=== PATIENT | female | born 1960 | race Caucasian/White ===

== ENCOUNTER → 2020-06-03 15:05 | Outpatient (BNVA) | payer OTHER, SELFPAY | PROVIDERS: PCP Internal Medicine; Visit Provider Internal Medicine Cardiovascular Disease | DX: Z45.02 Encounter for adjustment and management of automatic implantable cardiac defibrillator (principal); I42.8 Other cardiomyopathies; I49.3 Ventricular premature depolarization | CPT/HCPCS: 93005 ==

== ENCOUNTER 2020-06-16 08:51 | Outpatient (REF) | payer OTHER, SELFPAY ==
--- NOTE | 2020-06-16 08:58 | MM_ITS ---
EXAMINATION: MM SCREENING DIGITAL BREAST TOMOSYNTHESIS, BILATERAL CLINICAL INFORMATION: Screening. Asymptomatic. The lifetime risk of breast cancer based on the Tyrer-Cuzick Model is 6.1%. COMPARISON: Mammography: September 12, 2018 and August 02, 2016 TECHNIQUE: Digital breast tomosynthesis is performed in both the craniocaudal and mediolateral oblique views along with computer-aided detection (CAD). Synthesized 2D images are generated from the tomosynthesis. FINDINGS: There are scattered areas of fibroglandular density (ACR BI-RADS breast composition Category b). There are no significant masses, abnormal calcifications, or other abnormalities. MM/MM tomosynthesis screening BI IMPRESSION: There are no significant changes from prior study. ASSESSMENT: BI-RADS 1: Negative RECOMMENDATION: Routine annual mammography screening. This patient's information was entered into a reminder system with a target due date for their next mammogram.
== END 2020-06-16 08:52 | disposition home or self-care (01) ==
LOC: HO.MAMMO 08:51
PROVIDERS: Visit Provider Internal Medicine
DX: Z12.31 Encounter for screening mammogram for malignant neoplasm of breast (principal)
CPT/HCPCS: 77063; 77067

== ENCOUNTER → 2023-01-16 23:59 | Outpatient (BNV) | payer OTHER, SELFPAY ==
--- NOTE | 2023-01-24 14:55 | MHC.OFFVIS ---
Intake Intake Visit Reasons: Remote ICD Check- [employer] Allergies Pt states no known allergy to Allergy (Unknown, Uncoded 09/22/19 00:00) PFSH Medical History Biventricular ICD (implantable cardioverter-defibrillator) in place Frequent PVCs Nonischemic cardiomyopathy Surgical History History of cardiac radiofrequency ablation Hx of cardiac cath Hx of cholecystectomy Family History Father No problems noted. Mother No problems noted. Sister Stroke Office Procedures Cardiac Device Check Cardiac Device Check Details: Remote ICD report generated 01/16/2023. ICD function is adequate 65900-Utdrls Cardiac Interrogation, implant defibrillator w/interim Procedure code (CPT) selection complete Coding Level of Care Code Procedure Only Diagnoses CPT Codes Cardiac Device Check - Cardiac Device 13: 99640-Cjdflh Cardiac Interrogation, implant defibrillator w/interim ([id number])
== END ==
PROVIDERS: PCP Internal Medicine; Visit Provider Internal Medicine Cardiovascular Disease
DX: I42.8 Other cardiomyopathies (principal); Z95.810 Presence of automatic (implantable) cardiac defibrillator
CPT/HCPCS: 93295

== ENCOUNTER → 2023-01-16 23:59 | Outpatient (BNV) | payer OTHER, SELFPAY ==
--- NOTE | 2023-01-24 14:52 | MHC.OFFVIS ---
Intake Intake Visit Reasons: Remote HF Monitoring- [employer] Allergies Pt states no known allergy to Allergy (Unknown, Uncoded 09/22/19 00:00) PFSH Medical History Biventricular ICD (implantable cardioverter-defibrillator) in place Frequent PVCs Nonischemic cardiomyopathy Surgical History History of cardiac radiofrequency ablation Hx of cardiac cath Hx of cholecystectomy Family History Father No problems noted. Mother No problems noted. Sister Stroke Office Procedures Cardiac Device Check Cardiac Device Check Details: Remote heart failure report generated 01/16/2023. Heart failure parameters are stable 99491-Qeaekz Cardiac Device Interrogation, cardio physiologic monitor Procedure code (CPT) selection complete Coding Level of Care Code Procedure Only Diagnoses CPT Codes Cardiac Device Check - Cardiac Device 15: 04671-Nvfcff Cardiac Device Interrogation, cardio physiologic monitor ([id number])
== END ==
PROVIDERS: PCP Internal Medicine; Visit Provider Internal Medicine Cardiovascular Disease
DX: I42.8 Other cardiomyopathies (principal); Z95.810 Presence of automatic (implantable) cardiac defibrillator
CPT/HCPCS: 93297

== ENCOUNTER → 2023-02-16 23:59 | Outpatient (BNV) | payer OTHER, SELFPAY ==
--- NOTE | 2023-02-19 15:56 | MHC.OFFVIS ---
Intake Intake Visit Reasons: Remote HF Monitoring- [employer] Allergies Pt states no known allergy to Allergy (Unknown, Uncoded 09/22/19 00:00) PFSH Medical History Biventricular ICD (implantable cardioverter-defibrillator) in place Frequent PVCs Nonischemic cardiomyopathy Surgical History History of cardiac radiofrequency ablation Hx of cardiac cath Hx of cholecystectomy Family History Father No problems noted. Mother No problems noted. Sister Stroke Office Procedures Cardiac Device Check Cardiac Device Check Details: Remote heart failure report generated 02/18/2023. Heart failure parameters are stable 75198-Mpqkdw Cardiac Device Interrogation, cardio physiologic monitor Procedure code (CPT) selection complete Coding Level of Care Code Procedure Only Diagnoses CPT Codes Cardiac Device Check - Cardiac Device 15: 57781-Hmmubz Cardiac Device Interrogation, cardio physiologic monitor ([id number])
== END ==
PROVIDERS: PCP Internal Medicine; Visit Provider Internal Medicine Cardiovascular Disease
DX: I42.8 Other cardiomyopathies (principal); Z95.810 Presence of automatic (implantable) cardiac defibrillator
CPT/HCPCS: 93297

== ENCOUNTER → 2023-03-19 23:59 | Outpatient (BNV) | payer OTHER, SELFPAY ==
--- NOTE | 2023-03-19 15:56 | MHC.OFFVIS ---
Intake Intake Visit Reasons: Remote HF monitoring- [employer] Allergies Pt states no known allergy to Allergy (Unknown, Uncoded 09/22/19 00:00) PFSH Medical History Biventricular ICD (implantable cardioverter-defibrillator) in place Frequent PVCs Nonischemic cardiomyopathy Surgical History History of cardiac radiofrequency ablation Hx of cardiac cath Hx of cholecystectomy Family History Father No problems noted. Mother No problems noted. Sister Stroke Office Procedures Cardiac Device Check Cardiac Device Check Details: Remote heart failure report generated 03/19/2023. Heart failure parameters are stable 92497-Dqegqz Cardiac Device Interrogation, cardio physiologic monitor Procedure code (CPT) selection complete Coding Level of Care Code Procedure Only CPT Codes Cardiac Device Check - Cardiac Device 15: 94065-Yenqdv Cardiac Device Interrogation, cardio physiologic monitor ([id number])
== END ==
PROVIDERS: PCP Internal Medicine; Visit Provider Internal Medicine Cardiovascular Disease
DX: I42.8 Other cardiomyopathies (principal); Z95.810 Presence of automatic (implantable) cardiac defibrillator
CPT/HCPCS: 93297

== ENCOUNTER → 2023-04-19 23:59 | Outpatient (BNV) | payer OTHER, SELFPAY ==
--- NOTE | 2023-04-19 12:42 | MHC.OFFVIS ---
Intake Intake Visit Reasons: Remote ICD Check- [employer] Allergies Pt states no known allergy to Allergy (Unknown, Uncoded 09/22/19 00:00) PFSH Medical History Biventricular ICD (implantable cardioverter-defibrillator) in place Frequent PVCs Nonischemic cardiomyopathy Surgical History History of cardiac radiofrequency ablation Hx of cardiac cath Hx of cholecystectomy Family History Father No problems noted. Mother No problems noted. Sister Stroke Office Procedures Cardiac Device Check Cardiac Device Check Details: Remote ICD report generated 04/19/2023. ICD function is adequate. Bi V pacing 99.3% of the time 97178-Qtgioa Cardiac Interrogation, implant defibrillator w/interim Procedure code (CPT) selection complete Coding Level of Care Code Procedure Only CPT Codes Cardiac Device Check - Cardiac Device 13: 75524-Votwvm Cardiac Interrogation, implant defibrillator w/interim ([id number])
== END ==
PROVIDERS: PCP Internal Medicine; Visit Provider Internal Medicine Cardiovascular Disease
DX: I42.8 Other cardiomyopathies (principal); Z95.810 Presence of automatic (implantable) cardiac defibrillator
CPT/HCPCS: 93295

== ENCOUNTER → 2023-04-19 23:59 | Outpatient (BNV) | payer OTHER, SELFPAY ==
--- NOTE | 2023-04-19 12:43 | MHC.OFFVIS ---
Intake Intake Visit Reasons: Remote HF Monitoring- [employer] Allergies Pt states no known allergy to Allergy (Unknown, Uncoded 09/22/19 00:00) PFSH Medical History Biventricular ICD (implantable cardioverter-defibrillator) in place Frequent PVCs Nonischemic cardiomyopathy Surgical History History of cardiac radiofrequency ablation Hx of cardiac cath Hx of cholecystectomy Family History Father No problems noted. Mother No problems noted. Sister Stroke Office Procedures Cardiac Device Check Cardiac Device Check Details: Remote heart failure report generated 04/19/2023. Heart failure parameters are stable 54791-Hftala Cardiac Device Interrogation, cardio physiologic monitor Procedure code (CPT) selection complete Coding Level of Care Code Procedure Only CPT Codes Cardiac Device Check - Cardiac Device 15: 61904-Tqalna Cardiac Device Interrogation, cardio physiologic monitor ([id number])
== END ==
PROVIDERS: PCP Internal Medicine; Visit Provider Internal Medicine Cardiovascular Disease
DX: I42.8 Other cardiomyopathies (principal); Z95.810 Presence of automatic (implantable) cardiac defibrillator
CPT/HCPCS: 93297

== ENCOUNTER → 2023-05-21 23:59 | Outpatient (BNV) | payer OTHER, SELFPAY ==
--- NOTE | 2023-05-21 15:10 | MHC.OFFVIS ---
Intake Intake Visit Reasons: Remote HF Monitoring- [employer] Allergies Pt states no known allergy to Allergy (Unknown, Uncoded 09/22/19 00:00) PFSH Medical History Biventricular ICD (implantable cardioverter-defibrillator) in place Frequent PVCs Nonischemic cardiomyopathy Surgical History History of cardiac radiofrequency ablation Hx of cardiac cath Hx of cholecystectomy Family History Father No problems noted. Mother No problems noted. Sister Stroke Office Procedures Cardiac Device Check Cardiac Device Check Details: Remote heart failure report generated 05/21/2023. Heart failure parameters are stable 06456-Jfrlvy Cardiac Device Interrogation, cardio physiologic monitor Procedure code (CPT) selection complete Coding Level of Care Code Procedure Only CPT Codes Cardiac Device Check - Cardiac Device 15: 02761-Ojjshr Cardiac Device Interrogation, cardio physiologic monitor ([id number])
== END ==
PROVIDERS: PCP Internal Medicine; Visit Provider Internal Medicine Cardiovascular Disease
DX: I42.8 Other cardiomyopathies (principal); Z95.810 Presence of automatic (implantable) cardiac defibrillator
CPT/HCPCS: 93297

== ENCOUNTER → 2023-06-20 23:59 | Outpatient (BNV) | payer OTHER, SELFPAY ==
--- NOTE | 2023-06-26 08:27 | MHC.OFFVIS ---
Intake Intake Visit Reasons: Remote HF Monitoring- [employer] Allergies Pt states no known allergy to Allergy (Unknown, Uncoded 09/22/19 00:00) PFSH Medical History Biventricular ICD (implantable cardioverter-defibrillator) in place Frequent PVCs Nonischemic cardiomyopathy Surgical History History of cardiac radiofrequency ablation Hx of cardiac cath Hx of cholecystectomy Family History Father No problems noted. Mother No problems noted. Sister Stroke Office Procedures Cardiac Device Check Cardiac Device Check Details: Remote heart failure report generated 06/20/2023. Heart failure parameters are within normal limits 56894-Cebwdu Cardiac Device Interrogation, cardio physiologic monitor Procedure code (CPT) selection complete Assessment & Plan Assessment & Plan (1) Biventricular ICD (implantable cardioverter-defibrillator) in place: Comment: [employer] biventricular ICD placed in 2018 for nonischemic cardiomyopathy Code(s): Z95.810 - Presence of automatic (implantable) cardiac defibrillator Plan: See above Coding Level of Care Code Procedure Only Diagnoses Biventricular ICD (implantable cardioverter-defibrillator) in place Z95.810 CPT Codes Cardiac Device Check - Cardiac Device 15: 74441-Xuarcg Cardiac Device Interrogation, cardio physiologic monitor ([id number])
== END ==
PROVIDERS: PCP Internal Medicine; Visit Provider Internal Medicine Cardiovascular Disease
DX: I42.9 Cardiomyopathy, unspecified (principal); Z95.810 Presence of automatic (implantable) cardiac defibrillator
CPT/HCPCS: 93297

== ENCOUNTER → 2023-07-21 23:59 | Outpatient (BNV) | payer OTHER, SELFPAY ==
--- NOTE | 2023-07-23 17:51 | MHC.OFFVIS ---
Intake Intake Visit Reasons: Remote ICD Check- [employer] Allergies Pt states no known allergy to Allergy (Unknown, Uncoded 09/22/19 00:00) PFSH Medical History Biventricular ICD (implantable cardioverter-defibrillator) in place Frequent PVCs Nonischemic cardiomyopathy Surgical History History of cardiac radiofrequency ablation Hx of cardiac cath Hx of cholecystectomy Family History Father No problems noted. Mother No problems noted. Sister Stroke Office Procedures Cardiac Device Check Cardiac Device Check Details: Remote ICD report generated 07/21/2023. ICD function is adequate 72634-Lshbqy Cardiac Interrogation, implant defibrillator w/interim Procedure code (CPT) selection complete Assessment & Plan Assessment & Plan (1) Biventricular ICD (implantable cardioverter-defibrillator) in place: Comment: [employer] biventricular ICD placed in 2018 for nonischemic cardiomyopathy Code(s): Z95.810 - Presence of automatic (implantable) cardiac defibrillator Plan: See above Coding Level of Care Code Procedure Only Diagnoses Biventricular ICD (implantable cardioverter-defibrillator) in place Z95.810 CPT Codes Cardiac Device Check - Cardiac Device 13: 61099-Xgdwlk Cardiac Interrogation, implant defibrillator w/interim ([id number])
== END ==
PROVIDERS: PCP Internal Medicine; Visit Provider Internal Medicine Cardiovascular Disease
DX: I42.9 Cardiomyopathy, unspecified (principal); Z95.810 Presence of automatic (implantable) cardiac defibrillator
CPT/HCPCS: 93295

== ENCOUNTER → 2023-07-21 23:59 | Outpatient (BNV) | payer OTHER, SELFPAY ==
--- NOTE | 2023-07-23 17:52 | MHC.OFFVIS ---
Intake Intake Visit Reasons: Remote HF Monitoring- [employer] Allergies Pt states no known allergy to Allergy (Unknown, Uncoded 09/22/19 00:00) PFSH Medical History Biventricular ICD (implantable cardioverter-defibrillator) in place Frequent PVCs Nonischemic cardiomyopathy Surgical History History of cardiac radiofrequency ablation Hx of cardiac cath Hx of cholecystectomy Family History Father No problems noted. Mother No problems noted. Sister Stroke Office Procedures Cardiac Device Check Cardiac Device Check Details: Remote heart failure report generated 07/21/2023. Heart failure parameters are stable 85015-Noyjik Cardiac Device Interrogation, cardio physiologic monitor Procedure code (CPT) selection complete Assessment & Plan Assessment & Plan (1) Biventricular ICD (implantable cardioverter-defibrillator) in place: Comment: [employer] biventricular ICD placed in 2018 for nonischemic cardiomyopathy Code(s): Z95.810 - Presence of automatic (implantable) cardiac defibrillator Plan: See above Coding Level of Care Code Procedure Only Diagnoses Biventricular ICD (implantable cardioverter-defibrillator) in place Z95.810 CPT Codes Cardiac Device Check - Cardiac Device 15: 49366-Llhwdm Cardiac Device Interrogation, cardio physiologic monitor ([id number])
== END ==
PROVIDERS: PCP Internal Medicine; Visit Provider Internal Medicine Cardiovascular Disease
DX: I42.8 Other cardiomyopathies (principal); Z95.810 Presence of automatic (implantable) cardiac defibrillator
CPT/HCPCS: 93297

== ENCOUNTER → 2023-09-21 23:59 | Outpatient (BNV) | payer OTHER, SELFPAY ==
--- NOTE | 2023-09-21 14:19 | MHC.OFFVIS ---
Intake Intake Visit Reasons: Remote HF Monitoring- [employer] Allergies Pt states no known allergy to Allergy (Unknown, Uncoded 09/22/19 00:00) PFSH Medical History Biventricular ICD (implantable cardioverter-defibrillator) in place Frequent PVCs Nonischemic cardiomyopathy Surgical History History of cardiac radiofrequency ablation Hx of cardiac cath Hx of cholecystectomy Family History Father No problems noted. Mother No problems noted. Sister Stroke Office Procedures Cardiac Device Check Cardiac Device Check Details: Remote heart failure report generated 09/21/2023. 91161-Rnztyo Cardiac Device Interrogation, cardio physiologic monitor Procedure code (CPT) selection complete Assessment & Plan Assessment & Plan (1) Biventricular ICD (implantable cardioverter-defibrillator) in place: Comment: [employer] biventricular ICD placed in 2018 for nonischemic cardiomyopathy Code(s): Z95.810 - Presence of automatic (implantable) cardiac defibrillator Plan: See above Coding Level of Care Code Procedure Only Diagnoses Biventricular ICD (implantable cardioverter-defibrillator) in place Z95.810 CPT Codes Cardiac Device Check - Cardiac Device 15: 21659-Utoeot Cardiac Device Interrogation, cardio physiologic monitor ([id number])
== END ==
PROVIDERS: PCP Internal Medicine; Visit Provider Internal Medicine Cardiovascular Disease
DX: Z95.810 Presence of automatic (implantable) cardiac defibrillator (principal)
CPT/HCPCS: 93297

== ENCOUNTER → 2023-12-23 23:59 | Outpatient (BNV) | payer OTHER, SELFPAY ==
--- NOTE | 2023-12-25 08:36 | MHC.OFFVIS ---
Intake Visit Reasons: Remote ICD check- [employer] Allergies Pt states no known allergy to Allergy (Unknown, Uncoded 09/22/19 00:00) PFSH Medical History Biventricular ICD (implantable cardioverter-defibrillator) in place Frequent PVCs Nonischemic cardiomyopathy Surgical History History of cardiac radiofrequency ablation Hx of cardiac cath Hx of cholecystectomy Family History Father No problems noted. Mother No problems noted. Sister Stroke Office Procedures Cardiac Device Check Cardiac Device Check Details: Remote ICD report generated 12/23/2023. ICD function is adequate. 32827-Tvrxov Cardiac Interrogation, implant defibrillator w/interim Procedure code (CPT) selection complete Assessment & Plan Assessment & Plan (1) Biventricular ICD (implantable cardioverter-defibrillator) in place: Comment: [employer] biventricular ICD placed in 2018 for nonischemic cardiomyopathy Code(s): Z95.810 - Presence of automatic (implantable) cardiac defibrillator Category: Medical Plan: See above Coding Level of Care Code Est Pt Level 4 (03176) Diagnoses Biventricular ICD (implantable cardioverter-defibrillator) in place Z95.810 CPT Codes Cardiac Device Check - Cardiac Device 13: 88831-Zwvtem Cardiac Interrogation, implant defibrillator w/interim ([id number])
== END ==
PROVIDERS: PCP Student in an Organized Health Care Education/Training Program; Visit Provider Internal Medicine Cardiovascular Disease
DX: I42.9 Cardiomyopathy, unspecified (principal); Z95.810 Presence of automatic (implantable) cardiac defibrillator
CPT/HCPCS: 93295

== ENCOUNTER → 2023-12-23 23:59 | Outpatient (BNV) | payer OTHER, SELFPAY ==
--- NOTE | 2023-12-25 08:37 | MHC.OFFVIS ---
Intake Visit Reasons: Remote HF monitoring- [employer] Allergies Pt states no known allergy to Allergy (Unknown, Uncoded 09/22/19 00:00) PFSH Medical History Biventricular ICD (implantable cardioverter-defibrillator) in place Frequent PVCs Nonischemic cardiomyopathy Surgical History History of cardiac radiofrequency ablation Hx of cardiac cath Hx of cholecystectomy Family History Father No problems noted. Mother No problems noted. Sister Stroke Office Procedures Cardiac Device Check Cardiac Device Check Details: Remote heart failure report generated 12/23/2023. Heart failure parameters are stable 12361-Nynrik Cardiac Device Interrogation, cardio physiologic monitor Procedure code (CPT) selection complete Assessment & Plan Assessment & Plan (1) Biventricular ICD (implantable cardioverter-defibrillator) in place: Comment: [employer] biventricular ICD placed in 2018 for nonischemic cardiomyopathy Code(s): Z95.810 - Presence of automatic (implantable) cardiac defibrillator Category: Medical Plan: See above Coding Level of Care Code Procedure Only Diagnoses Biventricular ICD (implantable cardioverter-defibrillator) in place Z95.810 CPT Codes Cardiac Device Check - Cardiac Device 15: 08710-Bohwrw Cardiac Device Interrogation, cardio physiologic monitor ([id number])
== END ==
PROVIDERS: PCP Student in an Organized Health Care Education/Training Program; Visit Provider Internal Medicine Cardiovascular Disease
DX: I42.9 Cardiomyopathy, unspecified (principal); Z95.810 Presence of automatic (implantable) cardiac defibrillator
CPT/HCPCS: 93297

== ENCOUNTER → 2024-02-22 23:59 | Outpatient (BNV) | payer OTHER, SELFPAY ==
--- NOTE | 2024-03-03 17:28 | A.OFFVIS_ITS ---
Intake Visit Reasons: Remote HF monitoring- [employer] Allergies Pt states no known allergy to Allergy (Unknown, Uncoded 09/22/19 00:00) PFSH Medical History Biventricular ICD (implantable cardioverter-defibrillator) in place Frequent PVCs Nonischemic cardiomyopathy Surgical History History of cardiac radiofrequency ablation Hx of cardiac cath Hx of cholecystectomy Family History Father No problems noted. Mother No problems noted. Sister Stroke Office Procedures Cardiac Device Check Cardiac Device Check Details: Remote heart failure report generated 02/22/2024. Heart failure parameters are stable. I was requested to read this study on 03/03/2024 78948-Ngynby Cardiac Device Interrogation, cardio physiologic monitor Procedure code (CPT) selection complete Assessment & Plan Assessment & Plan (1) Biventricular ICD (implantable cardioverter-defibrillator) in place: Comment: [employer] biventricular ICD placed in 2018 for nonischemic cardiomyopathy Code(s): Z95.810 - Presence of automatic (implantable) cardiac defibrillator Category: Medical Plan: See above Coding Level of Care Code Procedure Only Diagnoses Biventricular ICD (implantable cardioverter-defibrillator) in place Z95.810 CPT Codes Cardiac Device Check - Cardiac Device 15: 71681-Qozztt Cardiac Device Inter rogation, cardio physiologic monitor ([id number])
== END ==
PROVIDERS: PCP Student in an Organized Health Care Education/Training Program; Visit Provider Internal Medicine Cardiovascular Disease
DX: I42.9 Cardiomyopathy, unspecified (principal); Z95.810 Presence of automatic (implantable) cardiac defibrillator
CPT/HCPCS: 93297

== ENCOUNTER 2024-04-03 15:07 | Outpatient (AMB) | payer OTHER, SELFPAY ==
[2024-04-03 15:08] VITALS: BP 130/80; PULSE 79; BMI 43.7
--- NOTE | 2024-04-03 15:08 | MHC.OFFVIS ---
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 She was not clinically seen in the office. She said over the last 4 years she has not had any hospitalization with congestive heart failure. She is remaining active and currently working but does continue to have exertional shortness of breath NYHA class 2. She denies any symptoms of orthopnea, PND, leg edema. She is currently not on metoprolol therapy for unclear reason, she said this was stopped and she is not sure why. She was started on amlodipine therapy as during a stressful period of time couple years ago her blood pressure is significantly elevated. She is also currently on lisinopril therapy. She denies any prolonged palpitation or even skipped heartbeat. Denies any lightheadedness, syncope, ICD discharge. She has not been able to lose much weight. She says she never had sleep apnea although not clear on that. She has not had any recent cardiac workup. [facility] Medical History Biventricular ICD (implantable cardioverter-defibrillator) in place Nonischemic cardiomyopathy Frequent PVCs Surgical History Hx of cholecystectomy History of cardiac radiofrequency ablation Hx of cardiac cath Family History Father No problems noted. Mother No problems noted. Sister Stroke Review of Systems Const Denies chills, Denies fatigue, Denies fever(s), Denies frequent falls, Denies weakness, Denies weight gain and Denies weight loss ENT Denies dizziness Card Denies chest pain, Denies leg edema, Denies lightheadedness, Denies palpitations, Denies dyspnea, Denies dyspnea on exertion, Denies orthopnea and Denies other (loss of consciousness) Resp Denies cough, Denies dyspnea and Denies dyspnea on exertion GI Denies hematochezia and Denies change in stool character Musc Denies abnormal gait, Denies muscle weakness, Denies numbness, Denies radiating pain into limb and Denies tingling Neuro Denies abnormal gait, Denies dizziness, Denies frequent falls, Denies numbness, Denies tingling and Denies weakness Endo Denies fatigue and Denies palpitations Physical Exam Vital Signs: Last Vital Signs Pulse 79 04/03/24 15:08 BP 130/80 04/03/24 15:08 BMI result Body Mass Index 43.7 Const General: cooperative, comfortable, no acute distress, alert, awake, Physically active and well groomed Nutritional Appearance: obese morbidly obese Orientation/consciousness: patient oriented x3 Limitations: no limitations HEENT Head: Yes normocephalic and Yes atraumatic Neck Neck: Yes trachea midline, Yes supple and Yes no JVD Resp Effort & Inspection: normal respiratory effort Auscultation: clear to auscultation bilaterally Cardio Jugular venous distension: no JVD Rate: regular rate Rhythm: regular rhythm Heart sounds: S1 normal heart sound present, S2 normal heart sound present, no click, no gallops, no murmurs and no rubs GI Auscultation: normal bowel sounds Skin General skin exam: no rashes or lesions noted Neuro General: patient oriented x3 and no focal motor deficits Extrem General: Yes no clubbing, cyanosis or edema Psych Appearance: grossly normal Office Procedures Cardiac Device Check Cardiac Device Check Details: Biventricular Medtronic ICD in place. Programmed in DDDR at 60 beats per minute. Biventricular pacing 99% of time. No arrhythmias detected. Atrial ventricular sensing is excellent. Atrial pacing thresholds excellent and reprogrammed to enhance battery life. RV pacing thresholds excellent and reprogrammed to enhance battery life. LV pacing thresholds elevated and reprogrammed to provide adequate safety. Pacing and shock lead impedance is stable. Battery life is at 15 months after reprogramming [id number] Cardiac Device Check, multi lead implantable defibrillator Procedure code (CPT) selection complete EKG Details: EKG shows atrially sensed, ventricularly paced rhythm with LV pacing [id number], Complete Assessment & Plan Assessment & Plan (1) Nonischemic cardiomyopathy: Code(s): I42.8 - Other cardiomyopathies Category: Medical Plan: Patient no follow-up for long time with prior history of severe nonischemic cardiomyopathy with NYHA class 2 symptoms most likely due to restrictive pulmonary defect from a weight. Although cardiomyopathy can not be entirely ruled out. No signs or symptoms of heart failure. She is not on appropriate guideline based medical therapy. Suggested her to switch her lisinopril to valsartan 160 mg b.i.d. for neurohormonal modulation eventually plan for Entresto if she has persistent LV systolic dysfunction. This was discussed with her. I have also taken the liberty to add carvedilol to her regimen for neurohormonal modulation and meanwhile have reduced her amlodipine from 5 mg to 2.5 mg. I have advised her to follow-up blood pressure at home. Also advise follow-up blood work with the switch. Echocardiogram near future to assess for LV systolic function. Persistent participate in regular physical activity and weight loss program was discussed. (2) Frequent PVCs: Code(s): I49.3 - Ventricular premature depolarization Category: Medical Plan: Frequent PVCs in the past which has led to ineffective biventricular pacing. Although these PVCs are not currently present on device monitoring. Will continue monitor by remote telemetry. Add carvedilol therapy as above. Stress mitigation strategies were discussed. Avoidance of stimulants was discussed. (3) Biventricular ICD (implantable cardioverter-defibrillator) in place: Comment: Medtronic biventricular ICD placed in 2018 for nonischemic cardiomyopathy Code(s): Z95.810 - Presence of automatic (implantable) cardiac defibrillator Category: Medical Plan: Biventricular ICD in place, reprogrammed for adequate function. Will follow-up remotely for heart failure and device function monitoring. Will follow up in the clinic in 3 months time, sooner p.r.n.. Thank you for allowing me to partake in his care Orders: Orders CA echo transthoracic complete 04/03/24 I42.8 - Other cardiomyopathies Medications: New amlodipine 2.5 mg PO DAILY I42.8 - Other cardiomyopathies valsartan 160 mg PO BID 60 tabs 5RF I42.8 - Other cardiomyopathies carvedilol (Coreg) must administer with a meal/food 3.125 mg PO BID 60 tabs 5RF I42.8 - Other cardiomyopathies Discontinued lisinopril Discontinued Reason: Doctor's Order 40 mg PO DAILY 90 days 90 tabs 1RF I10 - Essential (primary) hypertension Coding Level of Care Code New Pt Level 4 (84346) Complex EM visit Add On G2211 Diagnoses Nonischemic cardiomyopathy I42.8 Frequent PVCs I49.3 Biventricular ICD (implantable cardioverter-defibrillator) in place Z95.810 CPT Codes Cardiac Device Check - Cardiac Device 6: [id number] Cardiac Device Check, multi lead implantable defibrillator ([id number]) EKG - CPT: 69473-Kgyqlcrhexdupiixg, Complete ([id number])
== END 2024-04-03 15:44 | disposition home or self-care (01) ==
PROVIDERS: PCP Student in an Organized Health Care Education/Training Program; Visit Provider Internal Medicine Cardiovascular Disease
DX: I42.8 Other cardiomyopathies (principal); I49.3 Ventricular premature depolarization; Z95.810 Presence of automatic (implantable) cardiac defibrillator
CPT/HCPCS: 93284; 99214

== ENCOUNTER → 2024-04-03 15:07 | Outpatient (BNVA) | payer OTHER, SELFPAY | PROVIDERS: PCP Student in an Organized Health Care Education/Training Program; Visit Provider Internal Medicine Cardiovascular Disease ==

== ENCOUNTER → 2024-04-24 23:59 | Outpatient (BNV) | payer OTHER, SELFPAY ==
--- NOTE | 2024-04-28 16:53 | MHC.OFFVIS ---
Intake Visit Reasons: Remote ICD check- Medtronic Allergies Pt states no known allergy to Allergy (Unknown, Uncoded 09/22/19 00:00) PFSH Medical History Biventricular ICD (implantable cardioverter-defibrillator) in place Nonischemic cardiomyopathy Frequent PVCs Surgical History Hx of cholecystectomy History of cardiac radiofrequency ablation Hx of cardiac cath Family History Father No problems noted. Mother No problems noted. Sister Stroke Office Procedures Cardiac Device Check Cardiac Device Check Details: Remote heart failure report generated 04/24/2024. Heart failure parameters are stable [id number] Cardiac Device Interrogation, cardio physiologic monitor Procedure code (CPT) selection complete Assessment & Plan Assessment & Plan (1) Biventricular ICD (implantable cardioverter-defibrillator) in place: Comment: Medtronic biventricular ICD placed in 2018 for nonischemic cardiomyopathy Code(s): Z95.810 - Presence of automatic (implantable) cardiac defibrillator Category: Medical Plan: See above Coding Level of Care Code Procedure Only Diagnoses Biventricular ICD (implantable cardioverter-defibrillator) in place Z95.810 CPT Codes Cardiac Device Check - Cardiac Device 15: [id number] Cardiac Device Interrogation, cardio physiologic monitor ([id number])
== END ==
PROVIDERS: PCP Student in an Organized Health Care Education/Training Program; Visit Provider Internal Medicine Cardiovascular Disease
DX: Z45.02 Encounter for adjustment and management of automatic implantable cardiac defibrillator (principal)
CPT/HCPCS: 93297

== ENCOUNTER → 2024-05-19 12:53 | Outpatient (REF) | payer OTHER, SELFPAY ==
--- NOTE | 2024-05-19 12:55 | CA_ITS ---
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 The calculated ejection fraction is 37% by biplane method. - Globally hypokinetic with additional regionality to the basal inferior wall. - There is moderately increased left ventricular wall thickness. - No obvious valvular pathology seen on this study. - There is mild dilatation of the ascending aorta measuring 3.90 cm. Findings Left Ventricle Normal left ventricular cavity size. There is moderately increased left ventricular wall thickness. The left ventricular systolic function is moderately decreased. The calculated ejection fraction is 37% by biplane method. Evidence suggests grade I (mild) diastolic dysfunction. Globally hypokinetic with additional regionality to the basal inferior wall. Right Ventricle Normal right ventricular cavity size and systolic function. There is an ICD wire seen in the right ventricle. Atria The left atrium is mildly dilated. The right atrium is normal in size. Aortic Valve There is a normal trileaflet aortic valve. There is no aortic valve stenosis. There is trace (trivial) aortic valve regurgitation. Mitral Valve The mitral valve appears normal. There is trace mitral valve regurgitation. There is no mitral valve stenosis. Pulmonic Valve The pulmonic valve is likely normal. Tricuspid Valve Normal tricuspid valve structure. There is mild tricuspid valve regurgitation. There is no evidence of pulmonary hypertension. Great Vessels There is mild dilatation of the ascending aorta measuring 3.90 cm. Venous The inferior vena cava is normal in size and collapses greater than 50% with inspiration. Pericardium/Pleural There is no evidence of pericardial effusion. Prior Study Comparison Changes noted compared to prior study dated: 10/02/2019. see comment on wall motion. Recommendations, Care & Conclusions No obvious valvular pathology seen on this study. Measurements 2D Linear Measurements IVSd: 1.31 0.6-0.9/0.6-1.0 cm LVIDd: 5.25 3.9-5.3/4.2-5.9 cm LVIDd Index: 2.50 2.4-3.2/2.2-3.1 cm/m2 LVIDs: 3.51 2.0-3.6 cm LVPWd: 1.36 0.7-1.1 cm Ao Root: 3.40 2.1-3.5 cm LA Diam: 4.20 2.7-3.8/3.0-4.0 cm LAIDs Index: 2.00 1.5-2.3 cm/m2 LV Mass: 366.17 67-162/88-224 g LV Mass Index: 174.37 43-95/49-115 g/m2 LVOT Diam: 2.00 3.0+(-)1.3 cm 2D Systolic Function EF 4C: 35.60 >55% EF 2C: 35.30 >55% EF BiP: 37.10 >55% Mitral Valve MV Pk E: 0.54 MV PK A: 1.02 MV Decel Time: 207.00 E/A: 0.50 E'Lateral: 6.20 E'Medial: 5.33 E/E' Med: 10.10 E/E' Lat: 8.70 PHT: 61.00 MVA PHT: 3.61 Decel Ceiba: 2.60 Aortic Valve AoV Pk Jarrett: 1.53 AoV Pk Grad: 9.00 LVOT LVOT Pk Jarrett: 0.74 LVOT Mn Jarrett: 0.48 LVOT VTI: 0.18 LVOT Pk Grad: 2.00 LVOT Mn Grad: 1.00 LVOT Diam: 2.00 LVOT Area: 3.14 Diastolic Function MV Pk E: 0.54 MV Pk A: 1.02 E/A: 0.50 E'Medial: 5.33 E/E' Med: 10.10 E' Laterial: 6.20 E/E' Lat: 8.70 Right Ventricle TAPSE (mm): 29.00 TVS' Jarrett: 15.00 Tricuspid Valve TR Pk Jarrett: 2.46 TR Pk Grad: 24.00 RA Press: 3.00 Great Vessels Aorta Ao Root-2D: 3.40 2.0-3.7 cm Ao Asc: 3.90 2.1-3.4 cm Pulmonary Valve PV Pk Jarrett: 0.98 Peak PV Grad: 4.00 Updated in Other Vendor System with Status of Final Mario Bingham MD electronically signed on 05/21/2024 11:32:24 AM with status of Final
== END ==
LOC: HO.CARD 12:53
PROVIDERS: Visit Provider Internal Medicine Cardiovascular Disease
DX: I42.8 Other cardiomyopathies (principal)
CPT/HCPCS: 93306

== ENCOUNTER → 2024-05-19 12:55 | Outpatient (BNV) | payer OTHER, SELFPAY | PROVIDERS: Visit Provider Internal Medicine | DX: I36.1 Nonrheumatic tricuspid (valve) insufficiency (principal); I35.1 Nonrheumatic aortic (valve) insufficiency | CPT/HCPCS: 93306 ==

== ENCOUNTER 2024-07-15 14:17 | Outpatient (AMB) | payer OTHER, SELFPAY ==
--- NOTE | 2024-07-15 14:20 | MHC.OFFVIS ---
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 She has been overall doing well. Continues to have exertional shortness of breath NYHA class 2. Denies any orthopnea, PND, leg edema. Denies any exertional chest pain. Denies any lightheadedness, syncope, palpitation, ICD discharge. Comes for device check. Has been tolerating valsartan at current dose along with carvedilol. [facility] Medical History Biventricular ICD (implantable cardioverter-defibrillator) in place Nonischemic cardiomyopathy Frequent PVCs Surgical History Hx of cholecystectomy History of cardiac radiofrequency ablation Hx of cardiac cath Family History Father No problems noted. Mother No problems noted. Sister Stroke Review of Systems Const Denies chills, Denies fatigue, Denies fever(s), Denies frequent falls, Denies weakness, Denies weight gain and Denies weight loss ENT Denies dizziness Card Denies chest pain, Denies leg edema, Denies lightheadedness, Denies palpitations, Denies dyspnea, Denies dyspnea on exertion, Denies orthopnea and Denies other (loss of consciousness) Resp Denies cough, Denies dyspnea and Denies dyspnea on exertion GI Denies hematochezia and Denies change in stool character Musc Denies abnormal gait, Denies muscle weakness, Denies numbness, Denies radiating pain into limb and Denies tingling Neuro Denies abnormal gait, Denies dizziness, Denies frequent falls, Denies numbness, Denies tingling and Denies weakness Endo Denies fatigue and Denies palpitations Physical Exam Vital Signs: Last Vital Signs Pulse 90 07/15/24 14:21 BP 132/84 07/15/24 14:21 BMI result Body Mass Index 43.3 Const General: cooperative, comfortable, no acute distress, alert, awake, Physically active and well groomed Nutritional Appearance: obese morbidly obese Orientation/consciousness: patient oriented x3 Limitations: no limitations HEENT Head: Yes normocephalic and Yes atraumatic Neck Neck: Yes trachea midline, Yes supple and Yes no JVD Resp Effort & Inspection: normal respiratory effort Auscultation: clear to auscultation bilaterally Cardio Jugular venous distension: no JVD Rate: regular rate Rhythm: regular rhythm Heart sounds: S1 normal heart sound present, S2 normal heart sound present, no click, no gallops, no murmurs and no rubs GI Auscultation: normal bowel sounds Skin General skin exam: no rashes or lesions noted Neuro General: patient oriented x3 and no focal motor deficits Extrem General: Yes no clubbing, cyanosis or edema Psych Appearance: grossly normal Office Procedures Cardiac Device Check Cardiac Device Check Details: Biventricular Medtronic ICD in place. Programmed in DDDR at 60 beats per minute. Biventricular pacing 99.9% of time. No arrhythmias detected. Atrial and ventricular sensing is excellent. Pacing and shock lead impedance is stable. Atrial pacing thresholds excellent and reprogrammed to enhance battery life. RV pacing thresholds adequate. LV pacing thresholds are elevated and reprogrammed to provide adequate safety. Battery life is at about 10 months. [id number] Cardiac Device Check, multi lead implantable defibrillator Procedure code (CPT) selection complete Assessment & Plan Assessment & Plan (1) Nonischemic cardiomyopathy: Code(s): I42.8 - Other cardiomyopathies Category: Medical Plan: Nonischemic cardiomyopathy with moderate LV systolic dysfunction with moderate left ventricular hypertrophy with NYHA class 2 symptoms without any signs of congestive heart failure. Continue to uptitrate neurohormonal modulation. Will increase carvedilol to 6.25 mg b.i.d.. Advised to monitor blood pressure at home and maintain a log. Will gradually uptitrated as tolerated. Will switch valsartan to Entresto therapy, she says she just bought a whole prescription would like to completed. She is advised to call me once she is closer to completion and will call in Entresto therapy. Discussed about better neurohormonal modulation with Entresto therapy to overall improve her likelihood of reduction in heart failure hospitalization improvement in LV ejection fraction. Continue participate in regular physical activity and weight loss program. Continue CPAP therapy. (2) Biventricular ICD (implantable cardioverter-defibrillator) in place: Comment: Medtronic biventricular ICD placed in 2018 for nonischemic cardiomyopathy Code(s): Z95.810 - Presence of automatic (implantable) cardiac defibrillator Category: Medical Plan: Bi V ICD in place, working well. Reprogrammed for adequate function. Battery life is coming closer to replacement. Will continue monitor remotely. LV lead thresholds elevated and will need to address this at the time of battery replacement may require either a left bundle-branch block pacing lead or repositioning of LV lead. Will follow with her in 6 months time, sooner p.r.n.. Thank you for allowing me to partake in his care Orders: Orders Basic Metabolic Panel Today I42.8 - Other cardiomyopathies Coding Level of Care Code Est Pt Level 4 (29632) Complex EM visit Add On G2211 Diagnoses Nonischemic cardiomyopathy I42.8 Biventricular ICD (implantable cardioverter-defibrillator) in place Z95.810 CPT Codes Cardiac Device Check - Cardiac Device 6: [id number] Cardiac Device Check, multi lead implantable defibrillator ([id number])
[2024-07-15 14:21] VITALS: BP 132/84; PULSE 90; BMI 43.3
--- OUTSIDE RECORDS SUMMARY | 2024-07-15 16:15 | XMS_ITS | Clinical Summary ---
Author Organization [facility] Address [address] [place] [address] Care Team Providers Care Dependency Director Name Role Phone Rosana Fabian MD Primary Care Provider Surgical History Surgery Date Site/Laterality Comments CHOLECYSTECTOMY 1995 PROCEDURE: HISTORICAL CHOLECYSTECTOMY CARDIAC CATHETERIZATION 2016 PROCEDURE: HISTORICAL CARDIAC CATH; COMMENT: No report COLONOSCOPY 06/28/2012 PROCEDURE: HISTORICAL COLONOSCOPY; COMMENT: Colon polyps.Repeat 5 yrs. No path report received OTHER SURGICAL HISTORY PROCEDURE: HISTORICAL ICD; COMMENT: Bi ICD 07/16/2017 Medical History Medical History Date Comments Hypertension 01/18/2017 DX:Hypertension Hyperlipidemia 01/18/2017 DX:Hyperlipidemi a Depression 01/18/2017 DX:Depression Frequent PVCs 02/01/2017 DX:Frequent PVCs ; COMMENT: S/p ablation 01/10/2017 CHF NYHA class II (symptoms with moderately strenuous activities) (CMS/HCC) 02/27/2017 DX:CHF NYHA class II (sympto ms with moderately strenuous activities) (FORMERLY [facility]); COMMENT: NICM follows with cardiology Sensorineural hearing loss 04/26/2017 DX:Se nsorineural hearing loss; COMMENT: Right ear, follows with audiology. Last exam 04/26/2017. Also has chronic tinnitus Morbid obesity with BMI of 4 5.0-49.9, adult (CMS/HCC) 01/18/2017 DX:Morbid obesity with BMI o f 45.0-49.9, adult ([facility]) Colon polyps 07/11/2017 DX:Colon polyps; COMMENT: 06/28/2012, Repeat colonoscopy 5 yrs 2018 Non-ischemic cardiomyopathy (CMS/HCC) 01/18/2017 DX:Non-ischemic cardiomyopathy (HCC); COMMENT: EF 15-20 %, NICM, severe LV systolic dysfunction despite adequate medical therapy. Stress Test 07/31/2016. Holter reports 06/2016, 08/2016, 10/2016. S/p Bi ICD 07/16/2017 Family History Medical History Relation Name Comments Other cancer Father @ 62 Other: Colitis- severe Mother Hyper tension, Hyperlipidemia, @ 88 Brain Aneurysm Sister Breast cancer Neg Hx Colon cancer Neg Hx Ovarian cancer Neg Hx Relation Name Status Comments Father Mother Sister Social History Tobacco Use Types Packs/Day Years Used Date Smoking Tobacco: Never Smokeless Tobacco: Never Alcohol Use Standard Drinks/Week Comments Yes 2 (1 standard drink = 0.6 oz pur e alcohol) Sex and Gender Information Value Date Recorded Sex Assigned at Not on file Gender Identity Not on file Sexual Orientation Not on file Obstetrics History Plan of Treatment Health Maintenance Due Date Last Done Comments Breast Cancer Screening 1960 Zoster Vaccines (1 of 2) 09/06/2011 Cervical Cancer Screening: P ap Smear 10/05/2020 10/05/2017 COVID-19 Vaccine ( - 2023-2 5 season) 2024 Influenza Vaccine (#1) 2024 0, 03/08/2017 DTaP,Tdap,and Td Vaccines (2 - Td or Tdap) 03/08/2027 03/08/2017 RSV Immunization Patients 60 + Years Old (1 - 1-dose 75+ series) 2036 HIB Vaccines Aged Out No longer eligi ble based on patient's age to complete this topic HPV Vaccines Aged Out No longer eligi ble based on patient's age to complete this topic Hepatitis A Vaccines Aged Out No long er eligible based on patient's age to complete this topic Hepatitis B Vaccines Aged Out No long er eligible based on patient's age to complete this topic IPV Vaccines Aged Out No longer eligi ble based on patient's age to complete this topic MMR Vaccines Aged Out No longer eligi ble based on patient's age to complete this topic Meningococcal ACWY Vaccine Aged Out N o longer eligible based on patient's age to complete this topic Pneumococcal Vaccine: Pediatrics (0 to 5 Years) and At-Risk Patients (6 to 64 Years) Aged Out No longer eligible b ased on patient's age to complete this topic RSV Immunization Patients Under 20 months Aged Out No longer eligible b ased on patient's age to complete this topic Varicella Vaccines Aged Out No longer eligible based on patient's age to complete this topic Procedures Procedure Name Priority Date/Time Associated Diagnosis Comments PAP SMEAR Routine 10/05/2017 from Last 3 Months or Most Recently Relevant to Health Maintenance Results * Pap smear (10/05/2017) 10/05/2017 Narrative HISTORICAL TESTING LAB RESULTING AGENCY - 10/10/2017 6:14 PM EDT [id number] THINPREP PAP, IMAGED: NEGATIVE FOR SQUAMOUS INTRAEPITHELIAL LESION AND MALIGNANCY ??. REACTIVE CELLULAR CHANGES. RESULT OF APTIMA HIGH RISK HPV ASSAY: ?? NEGATIVE ?? (SEROTYPES 16,18,31,33,35,39,45,51,52,56,58,59,66,68) BACILIO BELLAMY(ASCP) (CASE SCREENED 10 09 2017) MARYSE GARCIA M.D., PATHOLOGIST (CASE ELECTRONICALLY SIGNED 10 09 2017) ADEQUACY: SATISFACTORY. ENDOCERVICAL/TRANSFORMATION ZONE COMPONENT PRESENT. SOURCE: THINPREP PAP HPV ANY DX: ??REFLEX 16 AND 18, CERVICAL, IMAGED: CLINICAL INFORMATION: HPV ANY DIAGNOSIS. ??Z12.4, Z01.419 Roberta Siddiqi MD LAB CYTOLOGY ORDERAB LES HISTORICAL TESTING LAB RESULTING AGENCY from Last 3 Months or Most Recently Relevant to Health Maintenance Care Teams Dependency Director Relationship Specialty Start Date End Date Rosana Fabian MD PCP - General Internal Medicine 03/11/21
== END 2024-07-15 14:45 | disposition home or self-care (01) ==
PROVIDERS: PCP Student in an Organized Health Care Education/Training Program; Visit Provider Internal Medicine Cardiovascular Disease
DX: I42.8 Other cardiomyopathies (principal); Z95.810 Presence of automatic (implantable) cardiac defibrillator
CPT/HCPCS: 93284; 99214

== ENCOUNTER → 2024-12-27 23:59 | Outpatient (BNV) | payer OTHER, SELFPAY ==
--- NOTE | 2025-01-01 13:34 | MHC.OFFVIS ---
Intake Visit Reasons: Remote ICD check- Medtronic Allergies Pt states no known allergy to Allergy (Unknown, Uncoded 09/22/19 00:00) PFSH Medical History Biventricular ICD (implantable cardioverter-defibrillator) in place Nonischemic cardiomyopathy Frequent PVCs Surgical History Hx of cholecystectomy History of cardiac radiofrequency ablation Hx of cardiac cath Family History Father No problems noted. Mother No problems noted. Sister Stroke Office Procedures Cardiac Device Check Cardiac Device Check Details: Remote ICD report generated 12/27/2024. ICD function is adequate. Bi V pacing 99.4% of the time [id number] Cardiac Interrogation, implant defibrillator w/interim Procedure code (CPT) selection complete Assessment & Plan Assessment & Plan (1) Biventricular ICD (implantable cardioverter-defibrillator) in place: Comment: Medtronic biventricular ICD placed in 2018 for nonischemic cardiomyopathy Code(s): Z95.810 - Presence of automatic (implantable) cardiac defibrillator Category: Medical Plan: See above Coding Level of Care Code Procedure Only Diagnoses Biventricular ICD (implantable cardioverter-defibrillator) in place Z95.810 CPT Codes Cardiac Device Check - Cardiac Device 13: [id number] Cardiac Interrogation, implant defibrillator w/interim ([id number])
== END ==
PROVIDERS: PCP Student in an Organized Health Care Education/Training Program; Visit Provider Internal Medicine Cardiovascular Disease
DX: I42.8 Other cardiomyopathies (principal); Z95.810 Presence of automatic (implantable) cardiac defibrillator
CPT/HCPCS: 93295

== ENCOUNTER → 2024-12-27 23:59 | Outpatient (BNV) | payer OTHER, SELFPAY ==
--- NOTE | 2025-01-01 13:33 | MHC.OFFVIS ---
Intake Visit Reasons: Remote HF monitoring-Medtronic Allergies Pt states no known allergy to Allergy (Unknown, Uncoded 09/22/19 00:00) PFSH Medical History Biventricular ICD (implantable cardioverter-defibrillator) in place Nonischemic cardiomyopathy Frequent PVCs Surgical History Hx of cholecystectomy History of cardiac radiofrequency ablation Hx of cardiac cath Family History Father No problems noted. Mother No problems noted. Sister Stroke Office Procedures Cardiac Device Check Cardiac Device Check Details: Remote heart failure report generated 12/27/2024. Heart failure parameters are stable [id number] Cardiac Device Interrogation, cardio physiologic monitor Procedure code (CPT) selection complete Assessment & Plan Assessment & Plan (1) Biventricular ICD (implantable cardioverter-defibrillator) in place: Comment: Medtronic biventricular ICD placed in 2018 for nonischemic cardiomyopathy Code(s): Z95.810 - Presence of automatic (implantable) cardiac defibrillator Category: Medical Plan: See above Coding Level of Care Code Procedure Only Diagnoses Biventricular ICD (implantable cardioverter-defibrillator) in place Z95.810 CPT Codes Cardiac Device Check - Cardiac Device 15: [id number] Cardiac Device Interrogation, cardio physiologic monitor ([id number])
== END ==
PROVIDERS: PCP Student in an Organized Health Care Education/Training Program; Visit Provider Internal Medicine Cardiovascular Disease
DX: I42.8 Other cardiomyopathies (principal); Z95.810 Presence of automatic (implantable) cardiac defibrillator
CPT/HCPCS: 93297

== ENCOUNTER 2025-01-22 14:25 | Outpatient (AMB) | payer OTHER, SELFPAY ==
--- OUTSIDE RECORDS SUMMARY | 2025-01-22 14:35 | XMS_ITS | Clinical Summary ---
Author Organization [facility] Address [address] [place] [address] Care Team Providers Care Basketball Referee Name Role Phone Rosana Fabian MD Primary [...] class II (symptoms with moderately strenuous activities) (CMS/HCC V24, CMS/HCC V28) 02/27/2017 DX:CHF NYHA class II (sympt oms with moderately strenuous activities) ([facility]); COMMENT: NICM follows with cardiology Sensorineural hearing loss 04/26/2017 DX:Se nsorineural hearing loss; COMMENT: Right ear, follows with audiology. Last exam 04/26/2017. Also has chronic tinnitus Morbid obesity with BMI of 4 5.0-49.9, adult (CMS/HCC V24, CMS/HCC V28) 01/18/2017 DX:Morbid obesity wit h BMI of 45.0-49.9, adult ([facility]) Colon polyps 07/11/2017 DX:Colon polyps; COMMENT: 06/28/2012, Repeat colonoscopy 5 yrs 2018 Non-ischemic cardiomyopathy (CMS/HCC V24, CMS/HCC V28) 01/18/2017 DX:Non-ischemic cardiomyopat hy (HCC); COMMENT: EF 15-20 %, NICM, severe [...] drink = 0.6 oz pur e alcohol) Comments Unknown Sex and Gender Information Value Date Recorded Sex Assigned at Not on file Legal Sex Female 4:13 PM EST Gender Identity Not on file Sexual Orientation Not on file Obstetrics History Plan of Treatment Health Maintenance Due Date Last Done Comments Breast Cancer Screening 1960 Pneumococcal Vaccine: 50+ Years (1 of 1 - PCV) 09/06/2011 Zoster Vaccines (1 of 2) 09/06/2011 Cervical Cancer Screening: P ap Smear 10/05/2020 10/05/2017 COVID-19 Vaccine (1 - 2023-2 5 season) 2024 Depression Screening 06/25/2024 Influenza Vaccine (#1) 2025 0, 03/08/2017 DTaP,Tdap,and Td Vaccines (2 - Td or Tdap) 03/08/2027 03/08/2017 RSV Immunization Adult Patients (1 - 1-dose 75+ series) 2036 HIB [...] patient's age to complete this topic Meningococcal B Vaccine Aged Out No l onger eligible based on patient's age to complete [...] RESULTING AGENCY - 10/10/2017 6:14 PM EDT [id number] THINPREP PAP, IMAGED: NEGATIVE FOR SQUAMOUS INTRAEPITHELIAL LESION AND MALIGNANCY . REACTIVE CELLULAR CHANGES. RESULT OF APTIMA HIGH RISK HPV ASSAY: NEGATIVE (SEROTYPES 16,18,31,33,35,39,45,51,52,56,58,59,66,68) BACILIO BELLAMY(ASCP) (CASE SCREENED 10 09 2017) MARYSE GARCIA M.D., PATHOLOGIST (CASE ELECTRONICALLY SIGNED 10 09 2017) ADEQUACY: SATISFACTORY. ENDOCERVICAL/TRANSFORMATION ZONE COMPONENT PRESENT. SOURCE: THINPREP PAP HPV ANY DX: REFLEX 16 AND 18, CERVICAL, IMAGED: CLINICAL INFORMATION: HPV ANY DIAGNOSIS. Z12.4, Z01.419 Roberta Siddiqi MD LAB CYTOLOGY ORDERABLES Final Result HISTORICAL TESTING LAB RESULTING AGENCY from Last 3 Months or Most Recently Relevant to Health Maintenance Care Teams Basketball Referee Relationship Specialty Start Date End Date Rosana Fabian MD PCP - General Internal Medicine 03/11/21
--- OUTSIDE RECORDS SUMMARY | 2025-01-22 14:35 | XMS_ITS | Clinical Summary ---
Author Organization [facility] Address [address] [place] [address] Care Team Providers Care Health Unit Coordinator Name Role Phone Bisi Baltazar MD Primary Care Provider [phone] Social History Tobacco Use Types Packs/Day Years Used Date Smoking Tobacco: Never Assessed Sex and Gender Information Value Date Recorded Sex Assigned at Not on file Gender Identity Not on file Sexual Orientation Not on file Plan of Treatment Health Maintenance Due Date Last Done Comments Hepatitis C Screening 1960 COVID-19 Vaccine (#1) 03/08/1962 Depression Screening 1973 Preventative Health Evaluation 09/06/1979 DTap / Tdap / Td (1 - Tdap) 1980 Cervical Cancer Screening (P ap Smear) 1982 Colon Cancer Screening (Colonoscopy) 2006 Shingrix-Zoster Vaccine (1 of 2) 09/06/2011 Breast Cancer Screening (Mammogram) 09/19/2017 09/20/2015 Influenza Vaccine (#1) 2025 RSV Adult > 60+ Yrs or Pregn ant (1 - 1-dose 75+ series) 2036 Hepatitis B Vaccines Aged Out No long er eligible based on patient's age to complete this topic Pneumococcal Vaccine Aged Out No long er eligible based on patient's age to complete this topic RSV Ped < 20 months Aged Out No longe r eligible based on patient's age to complete this topic Advance Directives For more information, please contact: [phone] Documents on File Type Date Recorded Patient Bilingual Office Assistant Expl anation Advance Directive and Living Will 09/20/2015 7:25 AM Care Teams Health Unit Coordinator Relationship Specialty Start Date End Date Bisi Baltazar MD [address] [place] [address] PCP - General Family Medicine 09/20/15
--- OUTSIDE RECORDS SUMMARY | 2025-01-22 14:35 | XMS_ITS | Clinical Summary ---
Author Organization [facility] Address [address] [place] [address] Phone Care Team Providers Care Senior Software Manager Name Role Phone Afshan Silva MD Primary Care Provider [phone] Allergies No known active allergies Medications atorvastatin (LIPITOR) 40 MG tabletIndications: Mixed hyperlipidemia take 1 tablet by mouth every day 90 tablet 3 4 Active buPROPion (WELLBUTRIN XL) 150 MG ER 24 hr tabletIndications: Moderate episode of recurrent major depressive disorder TAKE 1 TAB WITH 300MG TAB FOR TOTAL DOSE OF 450MG DAILY FOR 1 MONTH, PRIOR TO NEW SCRIPT FOR 450 IF TOLERATED 90 tablet 3 4 Active solifenacin (VESICARE) 5 MG tabletIndications: Overactive bladder TAKE 2 TABLETS BY MOUTH EVERY DAY 180 tablet 3 5 Active buPROPion (WELLBUTRIN XL) 300 MG ER 24 hr tablet TAKE 1 TABLET BY MOUTH EVERY DAY 90 tablet 3 5 Active carvedilol (COREG) 6.25 MG tablet Take 6.25 mg by mouth 2 (two) times a day with meals. Active valsartan (DIOVAN) 160 MG tablet Take 160 mg by mouth daily. Active semaglutide, weight loss, (WEGOVY) 0.25 mg/0.5 mL subcutaneous pen injectionIndicatio ns:Non-ischemic cardiomyopathy,Chr onic systolic congestive heart failure, NYHA class 2,Class 3 severe obesity due to excess calories with serious comorbidity and body mass index (BMI) of 40.0 to 44.9 in adult Inject 0.5 mL (0.25 mg total) under the skin every 7 days. 3 mL 3 5 Active Active Problems Problem Noted Date Diagnosed Date Class 3 severe obesity due t o excess calories with serious comorbidity and body mass index (BMI) of 40.0 to 44.9 in adult 11/20/2024 Assessment & Plan (11/20/2024 4:04 PM EDT): (If GLP too expensive will consider metformin/topiramate) Patient is interested in injectable anti-obesity medication. The following contraindications and precautions were reviewed and discussed: yes. Contraindications: Personal or family history Medullary Thyroid Cancer (MTC) or a personal history of Multiple Endocrine Neoplasia Type 2 (MEN2) - [Black Box Warning] Warnings: Not intended for use if or trying to become Not recommended for patients with unprovoked pancreatitis (not due to gallstones), severe gastroparesis, or other severe GI disease If on Oral Contraceptive (OCP), patient should use a backup form of contraception for four weeks when starting and titrating the dose as these medications can affect OCPs (per package insert for tirzepatide; at prescriber discretion for other medications) GI side effects (i.e., nausea, vomiting, diarrhea/constipation) are common with these medications Patient has Medicare insurance? No. Discussed weight management options and patient would like to proceed with injectable anti-obesity medication. Estimated body mass index is 43.59 kg/m as calculated from the following: Height as of 10/11/23: 160 cm (5' 2.99 ). Weight as of this encounter: 111.6 kg (246 lb). Patient has the following FDA Approved Indications: BMI >30 (+/-) the following comorbidities (select all that apply): Heart Disease (CAD), Hypertension, and Hyperlipidemia. Any ORAL anti-obesity medication contraindications/warnings? (I.e.: CAD, uncontrolled HTN, history of suicidal ideation, already on stimulant medication) Yes, uncontrolled BP and CAD/cardiomyopathy. Note: Certain insurances may have more strict BMI criteria for approval Weight Management History: Patient has participated in a comprehensive weight management program (enrollment to a plan i.e. Weight Watchers, [employer] Vallada[employer], which may require receipts) that encourages behavioral modification, reduced calorie diet and increased physical activity with continuing follow-up prior to using drug therapy?Yes. Name of program: weight watchers, nutrisystem Dates started and stopped: various Did this incur a cost to the patient: yes Did the patient lose at least 5 percent of baseline body weight. no. The requested drug will be used with a reduced calorie diet and increased physical activity for chronic weight management? yes Previous anti-obesity medication(s) used (with dates and reasons for stopping): none Next Steps/Patient Expectations: PLEASE DISCUSS WITH PATIENT PRIOR TO SUBMITTING RX [x] There is no guarantee the prior authorization will be approved. [x] This is a time intensive process. It will most likely require a prior authorization and it may be difficult to find it in stock at a pharmacy due to medication shortages. [x] It is the patient's responsibility to find the medication at a local pharmacy. Patient can request the pharmacy to transfer it in from wherever it was initially sent, or ask the prescriber to send a new prescription if needed. [x] If the medication is a listed plan exclusion (not covered) we will not be submitting an appeal, as the medication will not be covered. Discussed with patient: yes Orders: semaglutide, weight loss, (WEGOVY) 0.25 mg/0.5 mL subcutaneous pen injection; Inject 0.5 mL (0.25 mg total) under the skin every 7 days. Overactive bladder 02/02/2022 Assessment & Plan (02/02/2022 9:28 PM EDT): Discussed hx of vesicare which had positive benefits in the past. Will restart given how frustrating her sx are. Recommend use phenazopyridine as needed for breakthrough symptoms, try not to use every day. Cognitive attention deficit 02/01/2022 Assessment & Plan (02/02/2022 9:26 PM EDT): Since COVID in 2020, for 2 years. Recommended reaching out to Dr Sanders about turning down metoprolol to see if it might help. Discussed uncertainty of long covid and prognosis. Pacemaker 2021 Recurrent major depressive disorder 2021 Assessment & Plan (02/02/2022 9:27 PM EDT): Stable on fluoxetine and bupropion. Reviewed PHQ9 today. Pt is stable, managed by psychiatrist. Herpes labialis 2021 Colon polyps 07/11/2017 Overview (2021): 06/28/2012, Repeat colonoscopy 5 yrs 2018 Sensorineural hearing loss 04/26/201704/16 Overview (04/16/2023): Right ear, follows with audiology. Last exam 04/26/2017. Also has chronic tinnitus CHF NYHA class II (symptoms with moderately strenuous activities) 02/27/2017 Assessment & Plan (11/20/2024 4:04 PM EDT): Euvolemic today Cardiology following as above Orders: semaglutide, weight loss, (WEGOVY) 0.25 mg/0.5 mL subcutaneous pen injection; Inject 0.5 mL (0.25 mg total) under the skin every 7 days. Assessment & Plan (02/02/2022 9:21 PM EDT): Sayra is euvolemic today and stable. Follows Dr Sanders at [facility]. Recommend continue to follow up as directed. Reviewed meds and metop adjustment recommended as noted below. Frequent PVCs 02/01/2017 Overview (2021): S/p ablation 01/10/2017 Non-ischemic cardiomyopathy 01/18/2017 Overview (02/01/2022): EF 15-20 %, NICM, severe LV systolic dysfunction despite adequate medical therapy. Stress Test 07/31/2016. Holter reports 06/2016, 08/2016, 10/2016. S/p Bi ICD 07/16/2017 Assessment & Plan (11/20/2024 4:04 PM EDT): Plan is to replace pacemaker later this summer. Currently without major symptoms of CHF exacerbation. Given her comorbid obesity and cardiomyopathy with CHF, she would benefit from the cardioprotective benefit of being on a GLP1 (see below) Orders: semaglutide, weight loss, (WEGOVY) 0.25 mg/0.5 mL subcutaneous pen injection; Inject 0.5 mL (0.25 mg total) under the skin every 7 days. Assessment & Plan (02/02/2022 9:25 PM EDT): Clinically stable, see below for metoprolol adjustment re brain fog. Hypertension 01/18/2017 Hyperlipidemia 01/18/2017 Resolved Problems Problem Noted Date Diagnosed Date Resolved Date Morbid obesity 06/29/2022 04/16/2023 Encounters Date Type Department Care Team Description 11/26/2024 Telephone [facility] [address] [place] [address] Pooja Manley Medication Prior Authorization 11/20/2024 3:30 PM EDT Office Visit [facility] [address] [place] [address] Afshan Silva MD Non-ischemic cardiomyopathy (Primary Dx); Chronic systolic congestive heart failure, NYHA class 2; Class 3 severe obesity due to excess calories with serious comorbidity and body mass index (BMI) of 40.0 to 44.9 in adult from Last 3 Months Immunizations Immunization Administration Dates Next Due Influenza Quadrivalent MDCK Preservative Free IM 06/16/2020,09/18/2019 Influenza Quadrivalent MDCK w/Preservative IM Influenza Quadrivalent Preservative Free IM 03/26,05/28/2021 Influenza, Unspecified Formulation 05/28/2021 Tdap 03/08/2017 Family History Medical History Relation Comments Leukemia Father Dementia Mother Aneurysm Sister Stroke Sister Relation Status Comments Father Mother Sister Alive Social History Tobacco Use Types Packs/Day Years Used Date Smoking Tobacco: Never Smokeless Tobacco: Never Tobacco Cessation:Counseling Given: Not Answered Alcohol Use Standard Drinks/Week Comments Never 0 (1 standard drink = 0.6 oz pur e alcohol) Child or Family Care Answer Date Record ed Do you have problems with on e of the following making it difficult for you to work, study, or receive health care? No 04/15/2023 Education Answer Date Recorded Are you interested in help w ith more adult education (for example, completing high school, GED, job training, learning the [place] language, technical skills, or developing parenting skills)? No 04/15/2023 Are you concerned about learning? Not on file 04/15/2023 No 04/15/2023 Yes 04/15/2023 Food Answer Date Recorded Within the past 6 months we worried whether our food would run out before we got money to buy more. Often True 04/15/2023 Within the past 6 months the food we bought just didn't last and we didn't have enough money to get more. Often True Residential Stability Answer Date Recor ded What is your housing situation today? I have rosi michelle 04/15/2023 How many times have you moved in the past 12 sun ths? One time 04/15/2023 Paying for Meds Answer Date Recorded Do you have trouble paying for medicines? Yes 04/15/2023 Paying Utility Bills Answer Date Record ed Do you have trouble paying your heating or elect ricity bill? Yes 04/15/2023 Transportation Answer Date Recorded Has the lack of transportati on kept you from medical appointments or from getting medications? Yes 04/15/2023 Unemployment Answer Date Recorded Are you currently unemployed or working on a part-time or temporary basis, and looking for work? No 09/04/2021 Digital Access Answer Date Recorded No 04/15/2023 Yes 04/15/2023 Do you have reliable internet access at home? Ye s 04/15/2023 Do you have a device (e.g., phone, tablet, computer) with a working camera? Yes 04/15/2023 Intimate Partner Violence Answer Date R ecorded Are you denied basic needs s uch as food, clothing, or medical care? No 10/08/2023 In the past 12 months have y ou been in a relationship with a person who hurts, threatens, or tries to control you? No 10/08/2023 Are you denied basic needs s uch as food, clothing, or medical care? No 10/08/2023 In the past 12 months have y ou been in a relationship with a person who hurts, threatens, or tries to control you? No 10/08/2023 Comments No Sex and Gender Information Value Date Recorded Sex Assigned at Female 10/08/2023 7:20 PM EDT Legal Sex Female 1:18 PM EST Gender Identity Female 10/08/2023 7:20 PM EDT Sexual Orientation Straight 10/08/2023 7: 20 PM EDT Last Filed Vital Signs Vital Sign Reading Time Taken Comments Blood Pressure 152/90 11/20/2024 3:08 PM EDT Pulse 85 11/20/2024 3:08 PM EDT Temperature 36.8 C (98.3 F) 11/20/2024 3:08 PM EDT Respiratory Rate 16 10/08/2023 10:24 PM EDT Oxygen Saturation 98% 11/20/2024 3:08 PM EDT Inhaled Oxygen Concentration - - Weight 111.6 kg (246 lb) 11/20/2024 3:08 PM EDT Height 160 cm (5' 2.99 ) 10/11/2023 4:23 PM EDT Body Mass Index 43.59 10/11/2023 4:23 PM EDT Plan of Treatment Upcoming Encounters Date Type Department Care Team (Late st Contact Info) Description 02/18/2025 2:30 PM EDT Office Visit [facility] [address] [place] [address] Afshan Silva MD [address] [facility], [address] [place] [address] [email or web address] Health Maintenance Due Date Last Done Comments HEPATITIS C SCREENING 09/06/1979 HIV ONE-TIME SCREENING (18-6 5 YEARS) 09/06/1979 PNEUMOCOCCAL VACCINES (50+ years) (1 of 2 - PCV) 1980 MAMMOGRAM 2001 COLOGUARD 2006 FIT TEST 2006 FOBT 2006 SIGMOIDOSCOPY 2006 VIRTUAL COLONOSCOPY 2006 ZOSTER VACCINES (1 of 2) 09/06/2011 RSV VACCINE (1 - Risk 60-74 years 1-dose series) 2021 COVID-19 VACCINE ( - 2023-2 5 season) 2024 05/28/2021, 12/03/2020, 10/26/2020 DEPRESSION SCREENING 04/15/2024 04/15/2023, 04/15/2023 CREATININE LEVEL 10/07/2024 10/08/2023, 02/01/2022 POTASSIUM LEVEL 10/07/2024 10/08/2023, 02/01/2022 BLOOD PRESSURE 05/23/2025 11/20/2024 PAP SMEAR 04/16/2026 04/16/2023, 10/05/2017 SCREENING FOR DIABETES 10/07/2026 , 02/01/2022 LIPID PANEL 02/01/2027 02/01/2022, 09/20/2015 Adult Td,Tdap Booster 03/08/2027 03/08/2017 COLONOSCOPY 06/30/2027 06/30/2022 COLORECTAL CANCER SCREENING 06/30/2027 SMOKING STATUS SCREENING (On ce After 26 Yrs) Completed 11/20/2024 HEPATITIS A VACCINES Aged Out No long er eligible based on patient's age to complete this topic HIB VACCINES Aged Out No longer eligi ble based on patient's age to complete this topic MENINGOCOCCAL VACCINES (ACWY) Aged Out No longer eligible based on patient's age to complete this topic MENINGOCOCCAL VACCINES (B) Aged Out N o longer eligible based on patient's age to complete this topic Medical Devices Implanted Type [employer] Device Identifier Shelf Expiration Date Model / Serial / Lot Pacemaker L Sc Procedures Procedure Name Priority Date/Time Associated Diagnosis Comments BASIC METABOLIC PANEL STAT 10/08/2023 8:26 PM EDT PAP TEST Routine 04/16/2023 12:00 AM EDT ENDOSCOPY, COLON 06/30/2022 7:50 AM EST LIPID PANEL Routine 02/01/2022 4:04 PM EDT Mixed hyperlipidemia from Last 3 Months or Most Recently Relevant to Health Maintenance Results * (ABNORMAL) Basic metabolic panel (10/08/2023 8:26 PM EDT) SODIUM 137 133 - 146 mmol/L [facility] CHLORIDE 101 96 - 108 mmol/L [facility] POTASSIUM 4.2 3.3 - 5.1 mmol/L [facility] CO2 26 21 - 35 mmol/L [facility] BUN 16 6 - 19 mg/dL [facility] CREATININE 0.70 0.5 - 1.5 mg/dL [facility] GLUCOSE 105(H) 70 - 99 mg/dL [facility] CALCIUM 9.2 8.4 - 10.3 mg/dL [facility] EGFR 98 >59 mL/min/1.7 3m2 [facility] Comment:Estimated glomerular filtration rate calculated using the CKD-EPI refit equation. ANION GAP 14 10 - 20 mmol/L [facility] Blood 10/08/2023 8:26 PM EDT 10/08/2023 8:45 PM EDT Jaswant Contreras MD LAB BLOOD ORDERAB LES Final Result Performing Organization Address City/State/[facility] Co de Phone Number [address] [address] * Pap Test (04/16/2023 12:00 AM EDT) 04/16/2023 04/17/2023 9:0 1 AM EDT Narrative SEE NARRATIVE - 04/20/2023 2:38 PM EDT [address] [address] Job Training Supervisor: Bisi Saxena MD [employer] Cytology Report FINAL DIAGNOSIS A. PAP SMEAR (SUREPATH) CE: SPECIMEN ADEQUACY: Satisfactory for evaluation; transformation zone absent/insufficient. INTERPRETATION: NEGATIVE FOR INTRAEPITHELIAL LESION OR MALIGNANCY. Electronically Signed Out By: BACILIO French(ASCP) BACILIO Garcia(ASCP) The Pap test is a screening test primarily for squamous cancers and precursors and has associated false-negative and false-positive results. New technologies such as liquid-based preparations may decrease but will not eliminate all false-negative results. Regular sampling and follow-up of unexplained clinical signs and symptoms are recommended to minimize false negative results. PROCEDURES/ADDENDA HPV Testing (Requested) Ordered Date: 04/17/2023 A. PAP SMEAR (SUREPATH) CE: Human Papilloma Virus Test NEGATIVE for high-risk Human Papilloma Virus types 16, 18, 45 and the Other high risk probe set (Includes 31, 33, 35, 39, 51, 52, 56, 58, 59, 66, 68) Note: Testing performed by incuBET Onclarity HR-HPV analysis. Clinical correlation is advised. This HPV test was performed at [facility], [address] [place] [address]. This test has been FDA approved for SurePath cervical cytology specimens. The accuracy and precision of this test for all other specimen sources has been verified in the Cytopathology Laboratory of the [facility] and has not been cleared or approved by the U.S. Food and Drug Administration. Clinical correlation is advised. CLINICAL HISTORY Date of Last Menstrual Period: 04-16-2023 Other Clinical Conditions: Screening Pap SPECIMEN SOURCE A: PAP SMEAR (SUREPATH) CE Patient Name: SAYRA SANDERS : 1960 (Age: 62) Sex: F Institution: [facility] Location: [facility] Date of Collection: 04/16/2023 Date of Reported: 04/20/2023 14:38 Results to: Afshan Sullivan MD us Afshan Silva MD CYTOLOGY ORDERABLES Final Result SEE NARRATIVE * ENDOSCOPY, COLON (06/30/2022 7:50 AM EST) Narrative Transcriptions Antonio Mireles MD - 06/30/2022 7:50 AM EST [facility] Patient Name: Sayra Sanders Attending MD:: ANTONIO MIRELES MD Procedure Date: 06/30/2022 7:50 AM Date of : 1960 Age: 61 Admit Type: Outpatient Gender: Female Room: [place] [address] Referring MD: Afshan Sullivan Exam Type: Colonoscopy Indications: High risk colon cancer surveillance: Personalhistory of colonic polyps, Last colonoscopy: date unknown Medications: Monitored Anesthesia Care Procedure: Informed consent was obtained from the patientafter discussion of the indications, limitations, alternatives, benefits, and risks of the procedure. Risks specifically discussed include but are not limited to medication reactions, missed lesions, bleeding, perforation, or the need for emergent surgery. Throughout the procedure, the patient's blood pressure, pulse, end-tidal CO2, and oxygensaturations were monitored continuously. The Olympus adult variable colonoscope [id number] #[id number] was introduced through the anus and advanced to the terminal ileum. The colonoscopy was performedwithout difficulty. The patient tolerated the procedurewell. The quality of the bowel preparation was good. Anatomical landmarks were photographed. Complications: No immediate complications. Estimated blood loss:None. Findings: The perianal and digital rectal examinations were normal. Four sessile polyps were found in the rectum,sigmoid colon and descending colon. The polyps were 3 to 7mm in size. These polyps were removed with a coldsnare. Resection and retrieval were complete. The splenic flexure, transverse colon, hepatic flexure, ascending colon, cecum, appendicealorifice, ileocecal valve, ileum, rectum (on retroflexion)and ascending colon (on retroflexion) appearednormal. Impression: - Four 3 to 7 mm polyps in the rectum, in thesigmoid colon and in the descending colon, removed with acold snare. Resected and retrieved. - The splenic flexure, transverse colon, hepatic flexure, ascending colon, cecum, rectum (on retroflexion), ascending colon (on retroflexion), ileocecal valve, terminal ileum and appendiceal orifice are normal. Recommendation: - Discharge patient to home. - Resume previous diet. - Continue present medications. - Await pathology results. - Repeat colonoscopy in 5 years for surveillance. - I will send you pathology results by letter. Ifyou do not get results in 3 weeks telephone myoffice. ANTONIO MIRELES MD 06/30/2022 8:21:38 AM This report has been signed electronically. Number of Addenda: 0 Note Initiated On: 06/30/2022 7:50 AM Procedure Code(s): --- Professional --- 71855, Colonoscopy, flexible; with removal of tumor(s), polyp(s), or other lesion(s) by snare technique --- Technical --- 66935, Colonoscopy, flexible; with removal of tumor(s), polyp(s), or other lesion(s) by snare technique Diagnosis Code(s): --- Professional --- Z86.010, Personal history of colonic polyps K62.1, Rectal polyp K63.5, Polyp of colon --- Technical --- Z86.010, Personal history of colonic polyps K62.1, Rectal polyp K63.5, Polyp of colon CPT copyright 2020 [employer]. All rights reserved. The codes documented in this report are preliminary and upon geneticist reviewmay be revised to meet current compliance requirements. Procedure Date: 06/30/2022 7:50:[address] [place] [address] [place] Afshan Silva MD GI PROCEDURE ORDERABLES F inal Result * (ABNORMAL) Lipid panel (02/01/2022 4:04 PM EDT) HDL 46 mg/dL [facility] Comment: Interpretation <40 mg/dL: Low HDL cholesterol (major risk factor for CHD) Greater than or equal to 60 mg/dL: High HDL cholesterol ( negative risk factor for CHD) HDL - cholesterol is affected by a number of factors, e.g. smoking, excerise, hormones, sex and age. CHOLESTEROL 257(H) 0 - 240 mg/dL [facility] TRIGLYCERIDES 107 30 - 160 mg/dL [facility] LDL 190(H) 50 - 129 mg/dL [facility] Comment: LDL levels in terms of risk for coronary heart disease: <100 mg/dL: Optimal 100-129 mg/dL: Near or above optimal 130-159 mg/dL: Borderline high 160-189 mg/dL: High >190 mg/dL: Very High CARDIAC RISK RATIO 5.6(H) 3.3 - 4.4 [facility] Blood 02/01/2022 4:04 PM EDT 02/01/2022 4:06 PM EDT us Afshan Silva MD LAB BLOOD ORDERABLES Ritika jones Result [facility] [address] [place] [address] from Last 3 Months or Most Recently Relevant to Health Maintenance Insurance [facility] [address] [place] [id number] [place] [address] [place] [address] [place] [address] [place] [address] [address] [place] [address] [place] [address] [place] [address] [place] [address] [address] [place] [phone] [place] [address] [address] [place] [phone] [place], [place] [address] Care Teams Senior Software Manager Relationship Specialty Start Date End Date Afshan Silva MD [address] [place] [address], [address] [place], [place] [id number] [email or web address] PCP - General Family Medicine 08/25/21 Additional Source Comments The information contained in this document represents components of the legal health record. It is not the complete legal health record.[facility]
--- NOTE | 2025-01-22 14:41 | A.OFFVIS_ITS ---
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 She has been doing very well. She denies any symptoms of palpitations. Currently on carvedilol as well as valsartan therapy. Insurance company would not approve Entresto therapy and was very expensive for her. She says occasionally when she has stress a blood pressure is elevated otherwise at other times a blood pressure is well optimized. She denies any heart failure symptoms. No orthopnea, PND, leg edema. No exertional chest pain. No lightheadedness, syncope, ICD discharge. Comes for follow-up. [facility] Medical History Biventricular ICD (implantable cardioverter-defibrillator) in place Nonischemic cardiomyopathy Frequent PVCs Surgical History Hx of cholecystectomy History of cardiac radiofrequency ablation Hx of cardiac cath Family History Father No problems noted. Mother No problems noted. Sister Stroke Review of Systems Const Denies chills, Denies fatigue, Denies fever(s), Denies frequent falls, Denies weakness, Denies weight gain and Denies weight loss ENT Denies dizziness Card Denies chest pain, Denies leg edema, Denies lightheadedness, Denies palpitations, Denies dyspnea, Denies dyspnea on exertion, Denies orthopnea and Denies other (loss of consciousness) Resp Denies cough, Denies dyspnea and Denies dyspnea on exertion GI Denies hematochezia and Denies change in stool character Musc Denies abnormal gait, Denies muscle weakness, Denies numbness, Denies radiating pain into limb and Denies tingling Neuro Denies abnormal gait, Denies dizziness, Denies frequent falls, Denies numbness, Denies tingling and Denies weakness Endo Denies fatigue and Denies palpitations Physical Exam Vital Signs: Last Vital Signs Pulse 78 01/22/25 14:42 BP 124/78 01/22/25 14:42 BMI result Body Mass Index 43.0 Const General: cooperative, comfortable, no acute distress, alert, awake, Physically active and well groomed Nutritional Appearance: obese morbidly obese Orientation/consciousness: patient oriented x3 Limitations: no limitations HEENT Head: Yes normocephalic and Yes atraumatic Neck Neck: Yes trachea midline, Yes supple and Yes no JVD Resp Effort & Inspection: normal respiratory effort Auscultation: clear to auscultation bilaterally Cardio Jugular venous distension: no JVD Rate: regular rate Rhythm: regular rhythm Heart sounds: S1 normal heart sound present, S2 normal heart sound present, no click, no gallops, no murmurs and no rubs GI Auscultation: normal bowel sounds Skin General skin exam: no rashes or lesions noted Neuro General: patient oriented x3 and no focal motor deficits Extrem General: Yes no clubbing, cyanosis or edema Psych Appearance: grossly normal Office Procedures Cardiac Device Check Cardiac Device Check Details: Biventricular Medtronic ICD in place. Programmed in DDDR at 60 beats per minute. Biventricular pacing 99.5% of time. No significant arrhythmias detected at this point time. Atrial ventricular sensing is excellent. Atrial pacing thresholds excellent and reprogrammed to enhance safety. RV pacing t hresholds excellent and reprogrammed to enhance battery life. LV pacing thresholds adequate and reprogrammed to enhance safety. Battery life is at overall 4 months. Pacing and shock lead impedance is stable. [id number] Cardiac Device Check, multi lead implantable defibrillator Procedure code (CPT) selection complete Assessment & Plan Assessment & Plan (1) Nonischemic cardiomyopathy: Code(s): I42.8 - Other cardiomyopathies Category: Medical Plan: Severe nonischemic cardiac myopathy with current medical therapy which she is taking religiously with carvedilol and valsartan without any symptoms of heart failure. Class 1 symptoms. Discussed management. Continue current medications and neurohormonal modulation. Importance of regular physical activity and weight loss was discussed. Advised to call me with any heart failure symptoms. (2) HTN (hypertension): Code(s): I10 - Essential (primary) hypertension Category: Medical Plan: Hypertension which is appears to be adequately controlled at this point time. Continue current therapy. Stress mitigation strategies were discussed. Low- salt diet was discussed. Continue participate in lifestyle modification. (3) Biventricular ICD (implantable cardioverter-defibrillator) in place: Comment: Medtronic biventricular ICD placed in 2018 for nonischemic cardiomyopathy Code(s): Z95.810 - Presence of automatic (implantable) cardiac defibrillator Category: Medical Plan: Biventricular ICD in place, working well with excellent cardiac resynchronization therapy. Patient has higher LV pacing threshold although they have remained stable and battery life has been about 7 years. Will continue to monitor as battery life is coming close over remote monitoring. Will see her in the office once the battery life is [place]. We discussed the process of replacement of battery. She has had much less frequent PVCs and currently resynchronization well with increase carvedilol therapy. Plan to be started on Adderall therapy by a psychiatrist, will monitor her cardiac arrhythmia burden c losely. Will follow up in the clinic in 6 months time, sooner p.r.n.. Thank you for allowing me to partake in her care Coding Level of Care Code Est Pt Level 4 (87948) Complex EM visit Add On G2211 Diagnoses Nonischemic cardiomyopathy I42.8 HTN (hypertension) I10 Biventricular ICD (implantable cardioverter-defibrillator) in place Z95.810 CPT Codes Cardiac Device Check - Cardiac Device 6: [id number] Cardiac Device Check, multi lead implantable defibrillator ([id number])
[2025-01-22 14:42] VITALS: BP 124/78; PULSE 78; BMI 43.0
== END 2025-01-22 15:09 | disposition home or self-care (01) ==
LOC: HO.HCS 14:25
PROVIDERS: PCP Student in an Organized Health Care Education/Training Program; Visit Provider Internal Medicine Cardiovascular Disease
DX: I42.8 Other cardiomyopathies (principal); I10 Essential (primary) hypertension; Z95.810 Presence of automatic (implantable) cardiac defibrillator
CPT/HCPCS: 93284; 99214; G2211

== ENCOUNTER → 2025-01-26 23:59 | Outpatient (BNV) | payer OTHER, SELFPAY ==
--- NOTE | 2025-01-27 11:38 | MHC.OFFVIS ---
Intake Visit Reasons: Remote HF monitoring-Medtronic Allergies Pt states no known allergy to Allergy (Unknown, Uncoded 09/22/19 00:00) PFSH Medical History Biventricular ICD (implantable cardioverter-defibrillator) in place Nonischemic cardiomyopathy Frequent PVCs Surgical History Hx of cholecystectomy History of cardiac radiofrequency ablation Hx of cardiac cath Family History Father No problems noted. Mother No problems noted. Sister Stroke Office Procedures Cardiac Device Check Cardiac Device Check Details: Remote heart failure report generated January 26 2025. Heart failure parameters are within normal limits. [id number] Cardiac Device Interrogation, cardio physiologic monitor Procedure code (CPT) selection complete Assessment & Plan Assessment & Plan (1) Biventricular ICD (implantable cardioverter-defibrillator) in place: Comment: Medtronic biventricular ICD placed in 2018 for nonischemic cardiomyopathy Code(s): Z95.810 - Presence of automatic (implantable) cardiac defibrillator Category: Medical Plan: See above Coding Level of Care Code Complex EM visit Add On G2211 Diagnoses Biventricular ICD (implantable cardioverter-defibrillator) in place Z95.810 CPT Codes Cardiac Device Check - Cardiac Device 15: [id number] Cardiac Device Interrogation, cardio physiologic monitor ([id number])
== END ==
PROVIDERS: PCP Student in an Organized Health Care Education/Training Program; Visit Provider Internal Medicine Cardiovascular Disease
DX: I42.8 Other cardiomyopathies (principal); Z95.810 Presence of automatic (implantable) cardiac defibrillator
CPT/HCPCS: 93297

== ENCOUNTER → 2025-02-25 23:59 | Outpatient (BNV) | payer OTHER, SELFPAY ==
--- NOTE | 2025-03-10 16:19 | MHC.OFFVIS ---
Intake Visit Reasons: Remote HF monitoring-Medtronic Allergies Pt states no known allergy to Allergy (Unknown, Uncoded 09/22/19 00:00) PFSH Medical History Biventricular ICD (implantable cardioverter-defibrillator) in place Nonischemic cardiomyopathy Frequent PVCs Surgical History Hx of cholecystectomy History of cardiac radiofrequency ablation Hx of cardiac cath Family History Father No problems noted. Mother No problems noted. Sister Stroke Office Procedures Cardiac Device Check Cardiac Device Check Details: Remote heart failure report generated 02/25/2025. Heart failure parameters are stable [id number] Cardiac Device Interrogation, cardio physiologic monitor Procedure code (CPT) selection complete Assessment & Plan Assessment & Plan (1) Biventricular ICD (implantable cardioverter-defibrillator) in place: Comment: Medtronic biventricular ICD placed in 2018 for nonischemic cardiomyopathy Code(s): Z95.810 - Presence of automatic (implantable) cardiac defibrillator Category: Medical Plan: See above Coding Level of Care Code Procedure Only Diagnoses Biventricular ICD (implantable cardioverter-defibrillator) in place Z95.810 CPT Codes Cardiac Device Check - Cardiac Device 15: [id number] Cardiac Device Interrogation, cardio physiologic monitor ([id number])
== END ==
PROVIDERS: PCP Student in an Organized Health Care Education/Training Program; Visit Provider Internal Medicine Cardiovascular Disease
DX: I42.8 Other cardiomyopathies (principal); Z95.810 Presence of automatic (implantable) cardiac defibrillator
CPT/HCPCS: 93297

== ENCOUNTER → 2025-03-28 23:59 | Outpatient (BNV) | payer OTHER, SELFPAY ==
--- NOTE | 2025-04-01 12:07 | MHC.OFFVIS ---
Intake Visit Reasons: Remote ICD check- Medtronic Allergies Pt states no known allergy to Allergy (Unknown, Uncoded 09/22/19 00:00) PFSH Medical History Biventricular ICD (implantable cardioverter-defibrillator) in place Nonischemic cardiomyopathy Frequent PVCs Surgical History Hx of cholecystectomy History of cardiac radiofrequency ablation Hx of cardiac cath Family History Father No problems noted. Mother No problems noted. Sister Stroke Office Procedures Cardiac Device Check Cardiac Device Check Details: Remote ICD function report generated 03/28/2025. ICD function is adequate. Battery life is at 2 months. Will follow up in 1 month [id number] Cardiac Interrogation, implant defibrillator w/interim Procedure code (CPT) selection complete Assessment & Plan Assessment & Plan (1) Biventricular ICD (implantable cardioverter-defibrillator) in place: Comment: Medtronic biventricular ICD placed in 2018 for nonischemic cardiomyopathy Code(s): Z95.810 - Presence of automatic (implantable) cardiac defibrillator Category: Medical Plan: See above Coding Level of Care Code Procedure Only Diagnoses Biventricular ICD (implantable cardioverter-defibrillator) in place Z95.810 CPT Codes Cardiac Device Check - Cardiac Device 13: [id number] Cardiac Interrogation, implant defibrillator w/interim ([id number])
== END ==
PROVIDERS: PCP Student in an Organized Health Care Education/Training Program; Visit Provider Internal Medicine Cardiovascular Disease
DX: I42.8 Other cardiomyopathies (principal); Z95.810 Presence of automatic (implantable) cardiac defibrillator
CPT/HCPCS: 93295

== ENCOUNTER → 2025-03-28 23:59 | Outpatient (BNV) | payer OTHER, SELFPAY ==
--- NOTE | 2025-04-01 12:06 | MHC.OFFVIS ---
Intake Visit Reasons: Remote HF monitoring-Medtronic Allergies Pt states no known allergy to Allergy (Unknown, Uncoded 09/22/19 00:00) PFSH Medical History Biventricular ICD (implantable cardioverter-defibrillator) in place Nonischemic cardiomyopathy Frequent PVCs Surgical History Hx of cholecystectomy History of cardiac radiofrequency ablation Hx of cardiac cath Family History Father No problems noted. Mother No problems noted. Sister Stroke Office Procedures Cardiac Device Check Cardiac Device Check Details: Remote heart failure report generated 03/28/2025. Heart failure parameters are stable [id number] Cardiac Device Interrogation, cardio physiologic monitor Procedure code (CPT) selection complete Assessment & Plan Assessment & Plan (1) Biventricular ICD (implantable cardioverter-defibrillator) in place: Comment: Medtronic biventricular ICD placed in 2018 for nonischemic cardiomyopathy Code(s): Z95.810 - Presence of automatic (implantable) cardiac defibrillator Category: Medical Plan: See above Coding Level of Care Code Procedure Only Diagnoses Biventricular ICD (implantable cardioverter-defibrillator) in place Z95.810 CPT Codes Cardiac Device Check - Cardiac Device 15: [id number] Cardiac Device Interrogation, cardio physiologic monitor ([id number])
== END ==
PROVIDERS: PCP Student in an Organized Health Care Education/Training Program; Visit Provider Internal Medicine Cardiovascular Disease
DX: I42.8 Other cardiomyopathies (principal); Z95.810 Presence of automatic (implantable) cardiac defibrillator
CPT/HCPCS: 93297

== ENCOUNTER 2025-06-11 12:26 | Day surgery (SDC) | payer OTHER, SELFPAY ==
--- OUTSIDE RECORDS SUMMARY | 2025-05-28 20:43 | XMS_ITS ---
Author Name [facility] Organization Unknown Care Team Organization Name Specialty Phone Email Start Date End Da te [facility] Termed, [facility] Primary Care 05/02/202201/23
--- OUTSIDE RECORDS SUMMARY | 2025-05-28 20:43 | XMS_ITS | Clinical Summary ---
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 Active atorvastatin (LIPITOR) 40 MG tabletIndications: Mixed hyperlipidemia Take 1 tablet (40 mg total) by mouth daily. 90 tablet 5 Active ADDERALL 10 mg Tab tablet Take 10 mg by mouth 3 (three) times a day. 5 Active LEXAPRO 10 mg tablet Take 10 mg by mouth daily. 5 Active metFORMIN (GLUCOPHAGE-XR) 500 MG 24 hr tabletIndications: Class 3 severe obesity due to excess calories with serious comorbidity and body mass index (BMI) of 40.0 to 44.9 in adult Take 1 tablet (500 mg total) by mouth daily with dinner. 30 tablet 6 5 Active topiramate (TOPAMAX) 25 MG tabletIndications: Class 3 severe obesity due to excess calories with serious comorbidity and body mass index (BMI) of 40.0 to 44.9 in adult Take 1 tablet (25 mg total) by mouth 2 (two) times a day. 60 tablet 6 5 Active Active Problems Problem Noted Date Diagnosed Date Class 3 severe obesity due t o excess calories with serious comorbidity and body mass index (BMI) of 40.0 to 44.9 in adult 11/20/2024 Assessment & Plan (02/18/2025 2:46 PM EDT): Insurance did not cover wegovy -- would like to try metformin and topiramate in the meantime. Discussed r/b and s/e of met/top (diarrhea, cognitive fog) and will trial. Let me know via gateway message if any s/e or if she'd like to stop. Orders: metFORMIN (GLUCOPHAGE-XR) 500 MG 24 hr tablet; Take 1 tablet (500 mg total) by mouth daily with dinner. topiramate (TOPAMAX) 25 MG tablet; Take 1 tablet (25 mg total) by mouth 2 (two) times a day. Assessment & Plan (11/20/2024 4:04 PM EDT): [...] program (enrollment to a plan i.e. [employer], Haylie Jason, [employer], which may require receipts) that encourages behavioral [...] (02/02/2022 9:26 PM EDT): Since COVID in 2019, for 2 years. Recommended reaching out to [...] moderately strenuous activities) 02/27/2017 Assessment & Plan (02/18/2025 2:46 PM EDT): Asymptomatic, presumed euvolemic, closely followed by cardiology Assessment & Plan (11/20/2024 4:04 PM EDT): Euvolemic today Cardiology following as above Orders: semaglutide, weight loss, (WEGOVY) 0.25 mg/0.5 mL subcutaneous pen injection; Inject 0.5 mL (0.25 mg total) under the skin every 7 days. Assessment & Plan (02/02/2022 9:21 PM EDT): Sayra is euvolemic today and stable. [place] [facility] Recommend continue to follow up as directed. Reviewed meds and metop adjustment recommended as noted below. Frequent PVCs 02/01/2017 Overview (2021): S/p ablation 01/10/2017 Non-ischemic cardiomyopathy 01/18/2017 Overview (02/01/2022): EF 15-20 %, NICM, severe LV systolic dysfunction despite adequate medical therapy. Stress Test 07/31/2016. Holter reports 06/2016, 08/2016, 10/2016. S/p Bi ICD 07/16/2017 Assessment & Plan (02/18/2025 2:46 PM EDT): Carvedilol, valsartan per cardiology Assessment & Plan (11/20/2024 4:04 PM EDT): [...] metoprolol adjustment re brain fog. Hypertension 01/18/2017 Assessment & Plan (02/18/2025 2:46 PM EDT): BP high since starting stimulant. Recommend considering d/c adderall due to lack of efficacy and impact on bp. Hyperlipidemia 01/18/2017 Resolved Problems Problem Noted Date Diagnosed Date Resolved Date Morbid obesity 06/29/2022 04/16/2023 Immunizations Immunization Administration Dates Next Due Influenza [...] Answer Date Recorded Are you interested in more education? Not on jeb e 04/22/2025 Are you concerned about learning? Not on file 04/22/2025 No 04/22/2025 No 04/22/2025 Food Answer Date Recorded Within the past [...] your housing situation today? I have rosi sing 04/15/2023 How many times have you moved in the past 12 mon ths? One time 04/15/2023 Paying for Meds [...] 09/04/2021 Digital Access Answer Date Recorded No 04/22/2025 No 04/22/2025 Reliable internet access at home? Not on file 04/22/2025 Device with a working camera? Not on file Intimate Partner Violence Answer Date R ecorded [...] Sign Reading Time Taken Comments Blood Pressure 148/90 02/18/2025 2:18 PM EDT Pulse 83 02/18/2025 2:18 PM EDT Temperature 37.1 C (98.7 F) 02/18/2025 2:18 PM EDT Respiratory Rate 16 10/08/2023 10:24 PM EDT Oxygen Saturation 97% 02/18/2025 2:18 PM EDT Inhaled Oxygen Concentration - - Weight 109.3 kg (241 lb) 02/18/2025 2:18 PM EDT Height 160 cm (5' 2.99 ) 10/11/2023 4:23 PM EDT Body Mass Index 42.7 10/11/2023 4:23 PM EDT Plan of Treatment Upcoming Encounters Date Type Department Care Team (Late st Contact Info) Description 07/03/2025 3:15 PM EST Office Visit [facility] [address] [place] [address] Bhavna Jarvis MD [address] [place] [address], [address] [place] Garcia [address] [email or web address] Health Maintenance Due Date Last Done Comments HEPATITIS C SCREENING 09/06/1979 HIV ONE-TIME SCREENING (18-65 YEARS) 09/06/1979 PNEUMOCOCCAL VACCINES (50+ years) (1 of 2 - PCV) 1980 MAMMOGRAM 2001 COLOGUARD 2006 FIT TEST 2006 FOBT 2006 SIGMOIDOSCOPY 2006 VIRTUAL COLONOSCOPY 2006 RSV VACCINE (1 - Risk 50-74 years 1-dose series) 09/06/2011 ZOSTER VACCINES (1 of 2) 09/06/2011 DEPRESSION SCREENING 04/15/2024 04/15/2023, 04/15/20 23 CREATININE LEVEL 10/07/2024 10/08/2023, 02/01/2022 POTASSIUM LEVEL 10/07/2024 10/08/2023, 02/01/2022 INFLUENZA VACCINE (#1) 2025 , 05/28/2021, 05/28/2021, Additional history exists COVID-19 VACCINE ( season) 2025 05/28/2021, 12/03/2020, 10/26/2020 BLOOD PRESSURE 08/21/2025 02/18/2025 PAP SMEAR 04/16/2026 04/16/2023, 10/05/2017 SCREENING FOR DIABETES 10/07/2026 10/08/2023 LIPID PANEL 02/01/2027 02/01/2022, 09/20/2015 Adult Td,Tdap Booster 03/08/2027 03/08/2017 COLONOSCOPY 06/30/2027 06/30/2022 COLORECTAL CANCER SCREENING 06/30/2027 SMOKING STATUS SCREENING (Once After 26 Yrs) Completed 02/18/2025 HEPATITIS A VACCINES Aged Out No long [...] this topic Medical Devices Implanted Type Area Shirt Closer Device Identifier Shelf Expiration Date Model / Serial / Lot Pacemaker L Sc Procedures Procedure Name Priority Date/Time Associated Diagnosis Comments BASIC METABOLIC PANEL (BMP) STAT 10/08/2023 8:26 PM EDT PAP TEST Routine 04/16/2023 12:00 AM EDT ENDOSCOPY, COLON 06/30/2022 7:50 AM EST LIPID PANEL Routine 02/01/2022 4:04 PM EDT Mixed hyperlipidemia from Last 3 Months or Most Recently Relevant to Health Maintenance Results * (ABNORMAL) Basic metabolic panel (10/08/2023 8:26 PM EDT) SODIUM 137 133 - 146 mmol/L [facility] CHLORIDE 101 96 - 108 mmol/L [facility] POTASSIUM 4.2 3.3 - 5.1 mmol/L [facility] CO2 26 21 - 35 mmol/L [facility] BUN 16 6 - 19 mg/dL [facility] CREATININE 0.70 0.5 - 1.5 mg/dL [facility] GLUCOSE 105(H) 70 - 99 mg/dL [facility] CALCIUM 9.2 8.4 - 10.3 mg/dL [facility] EGFR 98 >59 mL/min/1.7 3m2 [facility] Comment:Estimated glomerular filtration rate calculated using the CKD-EPI refit equation. ANION GAP 14 10 - 20 mmol/L [facility] Blood 10/08/2023 8:26 PM EDT 10/08/2023 8:45 PM EDT us Jaswant Contreras MD LAB BLOOD BKR ORD ERABLES Final Result [facility] [address] [place] [address] * Pap Test (04/16/2023 12:00 AM EDT) 04/16/2023 04/17/2023 9:0 1 AM EDT Narrative SEE NARRATIVE - 04/20/2023 2:38 PM EDT [address] [address] Dispersion Mixer: Bisi Saxena MD BINDING CEMENTER FRENCH CORD Cytology Report FINAL DIAGNOSIS A. PAP SMEAR [...] 59, 66, 68) Note: Testing performed by [facility] On[facility]arity HR-HPV analysis. Clinical correlation is advised. This HPV test was performed at [facility], [address] [place] [address]. This test has been FDA approved for [facility] cervical cytology specimens. The accuracy and precision of this test for all other specimen sources has been verified in the Cytopathology Laboratory of the [facility] and has not been cleared or approved by the U.S. Food and Drug Administration. Clinical correlation is advised. CLINICAL HISTORY Date of Last Menstrual Period: 04-16-2023 Other Clinical Conditions: Screening Pap SPECIMEN SOURCE A: PAP SMEAR (SUREPATH) CE Patient Name: SAYRA SANDERS : 1960 (Age: 62) Sex: F Institution: [facility] Location: [facility] Date of Collection: 04/16/2023 Date of Reported: 04/20/2023 14:38 Results to: Afshan Sullivan MD us Afshan Silva MD CYTOLOGY ORDERABLES Final Result SEE NARRATIVE * ENDOSCOPY, COLON (06/30/2022 7:50 AM EST) Narrative Transcriptions Antonio Mireles MD - 06/30/2022 7:50 AM EST [facility] Patient Name: Sayra Sanders Attending MD:: ANTONIO MIRELES MD Procedure Date: 06/30/2022 7:50 AM Date of : 1960 Age: 61 Admit Type: Outpatient Gender: Female Room: [place] [address] Referring MD: Afshan Sullivan Exam Type: Colonoscopy [...] monitored continuously. The Olympus adult variable colonoscope [id number] #4 was introduced through the anus and [...] not get results in 3 weeks telephone sandip. ANTONIO MIRELES MD 06/30/2022 8:21:38 AM This report has been signed electronically. Number of Addenda: 0 Note Initiated On: 06/30/2022 7:50 AM Procedure Code(s): --- Professional --- 78238, Colonoscopy, flexible; with removal of tumor(s), polyp(s), or other lesion(s) by snare technique --- Technical --- 78950, Colonoscopy, flexible; with removal of tumor(s), polyp(s), or other lesion(s) by snare technique Diagnosis Code(s): --- Professional --- Z86.010, Personal history of colonic polyps K62.1, Rectal polyp K63.5, Polyp of colon --- Technical --- Z86.010, Personal history of colonic polyps K62.1, Rectal polyp K63.5, Polyp of colon CPT copyright 2020 [employer]. All rights reserved. The codes documented in this report are preliminary and upon musical engineer reviewmay be revised to meet current compliance requirements. Procedure Date: 06/30/2022 7:50:[address] [place] [address] us Afshan Silva MD GI PROCEDURE ORDERABLES F inal Result * (ABNORMAL) Lipid panel (02/01/2022 4:04 PM EDT) HDL 46 mg/dL [facility] Comment: Interpretation <40 mg/dL: Low HDL cholesterol (major risk factor for CHD) Greater than or equal to 60 mg/dL: High HDL cholesterol ( negative risk factor for CHD) HDL - cholesterol is affected by a number of factors, e.g. smoking, excerise, hormones, sex and age. CHOLESTEROL 257(H) 0 - 240 mg/dL [facility] TRIGLYCERIDES 107 30 - 160 mg/dL [facility] LDL 190(H) 50 - 129 mg/dL [facility] Comment: LDL levels in terms of risk for coronary heart disease: <100 mg/dL: Optimal 100-129 mg/dL: Near or above optimal 130-159 mg/dL: Borderline high 160-189 mg/dL: High >190 mg/dL: Very High CARDIAC RISK RATIO 5.6(H) 3.3 - 4.4 [facility] Blood 02/01/2022 4:04 PM EDT 02/01/2022 4:06 PM EDT us Afshan Silva MD LAB BLOOD BKR ORDERABLES Final Result [address] [address] from Last 3 Months or Most Recently Relevant to Health Maintenance Insurance [address] [place] [phone] [place] [address] [address]MO [address] [place] [address] [place] [address] [address] [place] [address] [place] [address] [address] [place] [phone] [place] [address] [address] [place] [id number] [place] [address] [address] [place] [address] [place] [address] [address] [place] [address] [place] [address] [facility] HMO [facility] H[facility] Care Teams Music Education Adjunct Professor Relationship Specialty Start Date End Date Afshan Silva MD [address] [place] [address] [address] [place] [address] PCP - General Family Medicine 08/25/21 Additional Source Comments The information contained in this document represents components of the legal health record. It is not the complete legal health record.[facility]
--- OUTSIDE RECORDS SUMMARY | 2025-05-28 20:43 | XMS_ITS | Clinical Summary ---
Author Organization [facility] [facility] Address [address] [place] [address] Care Team Providers Care Lightning Protection Installer Name Role Phone Rosana Fabian MD Primary [...] II (sympt oms with moderately strenuous activities) ([facility]); COMMENT: NICM follows with cardiology Sensorineural hearing loss 04/26/2017 DX:Se nsorineural hearing loss; COMMENT: Right ear, follows with audiology. Last exam 04/26/2017. Also has chronic tinnitus Morbid obesity with BMI of 4 5.0-49.9, adult (CMS/HCC V24, CMS/HCC V28) 01/18/2017 DX:Morbid obesity wit h BMI of 45.0-49.9, adult ([facility]) Colon polyps 07/11/2017 DX:Colon polyps; COMMENT: 06/28/2012, [...] Cancer Screening: P ap Smear 10/05/2020 10/05/2017 Depression Screening 06/25/2024 COVID-19 Vaccine (1 - 2024-2 6 season) 2025 Influenza Vaccine (#1) 2025 0, 03/08/2017 DTaP,Tdap,and [...] RESULTING AGENCY - 10/10/2017 6:14 PM EDT [id number] THINPREP PAP, IMAGED: NEGATIVE FOR SQUAMOUS INTRAEPITHELIAL [...] Recently Relevant to Health Maintenance Care Teams Lightning Protection Installer Relationship Specialty Start Date End Date Rosana Fabian MD PCP - General Internal Medicine 03/11/21
--- OUTSIDE RECORDS SUMMARY | 2025-05-28 20:44 | XMS_ITS | Clinical Summary ---
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
--- OUTSIDE RECORDS SUMMARY | 2025-05-28 20:44 | XMS_ITS | Encounter Summary ---
Author Organization [facility] Address [address] [place] [address] Phone Care Team Providers Care Pbx Operator Name Role Phone Afshan Silva MD Primary Care Provider [phone] Encounter Details Date Type Department Care Team (Late st Contact Info) Description 06/30/2022 Procedure Pass [facility] Endoscopy Admitting Dept Virtual Department [address] [place] [address] Social History Tobacco Use Types Packs/Day Years Used Date Smoking Tobacco: Never Smokeless Tobacco: Never Child or Family Care Answer Date Record ed Do you have problems with on e of the following making it difficult for you to work, study, or receive health care? No 09/04/2021 Education Answer Date Recorded Are you interested in help w ith more adult education (for example, completing high school, GED, job training, learning the [place] language, technical skills, or developing parenting skills)? No 09/04/2021 Food Answer Date Recorded Within the past 6 months we worried whether our food would run out before we got money to buy more. Sometimes True 022 Within the past 6 months the food we bought just didn't last and we didn't have enough money to get more. Sometimes True 08/23 Residential Stability Answer Date Recor ded What is your housing situation today? I have rosi sing 09/04/2021 How many times have you move d in the past 12 months? Zero (I did not move) 09/04/2021 Paying for Meds Answer Date Recorded Do you have trouble paying for medicines? No 09/04/2021 Paying Utility Bills Answer Date Record ed Do you have trouble paying your heating or elect ricity bill? Yes 09/04/2021 Transportation Answer Date Recorded Has the lack of transportati on kept you from medical appointments or from getting medications? Yes 09/04/2021 Unemployment Answer Date Recorded Are you currently unemployed or working on a part-time or temporary basis, and looking for work? No 09/04/2021 Comments Unknown Sex and Gender Information Value Date Recorded Sex Assigned at Female 10/08/2023 7:20 PM EDT Legal Sex Female 1:18 PM EST Gender Identity Female 10/08/2023 7:20 PM EDT Sexual Orientation Straight 10/08/2023 7: 20 PM EDT documented as of this encounter Plan of Treatment Upcoming Encounters Date Type Department Care Team (Late st Contact Info) Description 07/03/2025 3:15 PM EST Office Visit [facility] [address] [place] [address] Bhavna Jarvis MD [address] [address] [email or web address] documented as of this encounter Visit Diagnoses Not on filedocumented in this encounter Additional Health Concerns Assessment Noted Time PHQ-9 Depression Total Score: 23 022 11:47 AM EDT PHQ-2 Depression Total Score: 6 01/30/20 22 11:47 AM EDT documented as of this encounter Care Teams Pbx Operator Relationship Specialty Start Date End Date Afshan Silva MD [address] [address] PCP - General Family Medicine 08/25/21 documented as of this encounter Additional Source Comments The information contained in this document represents components of the legal health record. It is not the complete legal health record.[facility]
[2025-06-11] VITALS (21 sets, daily range): BP systolic 116–165; BP diastolic 63–109; PULSE 67–76; RESP 8–16; TEMP 36.3–36.6; O2SAT 95–100; BMI 42.0
--- NOTE | 2025-06-11 14:31 | PM.CNCAR ---
History of Present Illness History of Present Illness Date of Service: 06/11/25 Requesting physician: Pedro Sanders Chief complaint: NICM, BiV ICD Narrative: 64-year old female with medical history significant for NICM, HTN, PVCs, and obesity is referred to EP for evaluation for generator replacement for FOOD SAFETY SPECIALIST-D reaching EKATERINA. She denies recent episodes of cp, sob, palpitations, fevers, or syncope. Denies recent shocks from her device. Review of Systems Review of Systems: Yes all other systems are reviewed and are negative [facility] Past Medical History Medical History (Updated 06/11/25 @ 14:36 by Tonio Day MD) Biventricular ICD (implantable cardioverter-defibrillator) in place Nonischemic cardiomyopathy Frequent PVCs Family History Family History Father No problems noted. Mother No problems noted. Sister Stroke Surgical History Surgical History (Updated 06/11/25 @ 12:50 by Lotus Ahuja RN) H/O bilateral cataract extraction Hx of tonsillectomy Hx of cholecystectomy History of cardiac radiofrequency ablation Hx of cardiac cath Social History Social History Patient Tobacco Use Status: Never used Tobacco Use of substances other than those prescribed or required for medical reasons: Yes Are you DNR?: No Advance Directives: No Advance Directives Information Provided: Yes Patient : No : No Meds Allergies Allergy/AdvReac Type Severity Reaction Status Date / Time No Known Allergies Allergy Verified 06/11/25 12:49 Active Medications: Current Medications Cefazolin Sodium/Dextrose (Ancef) 2 gm in 50 mls @ 100 mls/hr IV ONCE ONE Stop: 06/11/25 14:57 Last Admin: 06/11/25 14:29 Dose: 100 mls/hr Home Medications ?Medication ?Instructions ?Recorded ?Confirmed ?Last Taken ?Type atorvastatin 40 mg tablet 40 mg PO BEDTIME 06/03/20 06/11/25 Unknown History bupropion HCl 300 mg 24 hr tablet, 300 mg PO DAILY 06/03/20 06/11/25 Unknown History extended release bupropion HCl 150 mg 24 hr tablet, 150 mg PO DAILY 04/03/24 06/11/25 Unknown History extended release solifenacin 5 mg tablet 10 mg PO DAILY 04/03/24 06/11/25 06/11/25 History escitalopram oxalate 10 mg tablet 10 mg PO DAILY 01/22/25 06/11/25 Unknown History (Lexapro) Physical Exam Exam: Exam: General: NAD Eyes: anicteric Heart: RRR Abd: soft Exts: warm Neuro: no gross focal deficits Psych: stable Vital Signs: Vital Signs: Last Vital Signs Temp 97.3 F 06/11/25 13:06 Pulse 75 06/11/25 13:09 Resp 16 06/11/25 13:06 BP 162/99 H 06/11/25 13:09 Pulse Ox 96 06/11/25 13:06 O2 Del Method Room Air 06/11/25 13:06 BMI result Body Mass Index 42.0 Assessment and Plan (1) HTN (hypertension): Qualifiers: Hypertension type: primary hypertension Qualified Code(s): I10 - Essential (primary) hypertension Status: Acute (2) Nonischemic cardiomyopathy: Status: Acute (3) Frequent PVCs: Status: Acute (4) Biventricular ICD (implantable cardioverter-defibrillator) in place: Status: Acute (5) Obese: Qualifiers: Obesity classification: adult class 3 (BMI >= 40) Obesity type: due to excess calories Serious obesity comorbidity presence: with serious comorbidity Status: Acute Plan Risks, benefits, and alternatives of FOOD SAFETY SPECIALIST-D generator replacement discussed with the pt. Last TTE results reviewed. We mutually decided to proceed w/ generator replacement. Total time managing care of this patient today: 42 minutes. Procedures Date of Service Date of Service: 06/11/25
--- NOTE | 2025-06-11 14:39 | W.PM.OPN ---
Operative Note Operative Note Date of Service: 06/11/25 Narrative: Indication: FISHERIES ENFORCEMENT OFFICER-D generator EKATERINA NICM Summary: 1. Generator replacement of [employer] FISHERIES ENFORCEMENT OFFICER-D (CPT 22626) 2. Moderate sedation provided by wi for 46 minutes (CPT 29370, +[id number] x3) Narrative: Patient presented to the EP lab in a fasting, nonsedated state after written informed consent was verified. The procedure was performed under moderate sedation provided by wi. 2g IV Ancef was administered prior to skin incision. The patient was prepped and draped in the usual sterile manner. A 1-inch incision was made over the existing FISHERIES ENFORCEMENT OFFICER-D generator. The device pocket was exposed using a combination of electrocautery and blunt dissection. The existing generator was removed from the pocket. The new FISHERIES ENFORCEMENT OFFICER-D was brought to the field. The leads were detached from the existing generator and inserted into the respective ports of the new generator. The leads were secured in the header using the provided torque wrench. The pocket was flushed with an antibiotic irrigant. Any bleeders within the pocket were controlled with electrocautery. The leads were wrapped underneath the new generator and the device was placed back within the existing pocket. A TYRX envelope was placed within the pocket. FISHERIES ENFORCEMENT OFFICER-D testing showed lead parameters to be within the desirable range. The pocket was closed in three layers using 2-0 followed by 4-0 V-Loc. Dermabond was applied over the incision site. Gauze and tegaderm dressing were then applied over the incision site followed by a pressure dressing. Patient was then transported back to recovery in a stable condition. Procedure start: 2:45 PM Procedure end: 3:32 PM
== END 2025-06-11 17:06 | disposition home or self-care (01) ==
PROVIDERS: PCP Student in an Organized Health Care Education/Training Program; Visit Provider Student in an Organized Health Care Education/Training Program
DX: Z45.02 Encounter for adjustment and management of automatic implantable cardiac defibrillator (principal); I49.3 Ventricular premature depolarization; I10 Essential (primary) hypertension; I42.8 Other cardiomyopathies; E66.813 Obesity, class 3; Z68.41 Body mass index [BMI] 40.0-44.9, adult; Z79.899 Other long term (current) drug therapy
CPT/HCPCS: 33263; 99152; 99153; C1882; C1889; J0690; J2003; J2250; J3010; J3374